=== PATIENT | female | born 1965 | race Caucasian/White ===

== ENCOUNTER 2016-05-09 23:03 | Inpatient (IN) | payer BC ==
--- NOTE | 2016-05-09 23:21 | ED PDOC ---
Arrival/HPI - General Chief Complaint: Seizure Time Seen by Provider: 05/09/16 23:07 Historian: Patient, Family - History of Present Illness Narrative History of Present Illness (Text): 05/09/16 23:20 Simran Patel is a 50 year old female, whose past medical history includes DVT, hypertension, lupus, and COPD, who presents to the ED brought in by EMS status post possible seizure prior to arrival. Patient's nephew reports he found the patient lying face down on the floor shaking and poorly responsive tonight. Patient is awake and alert but unable to recall the incident. Limited HPI and ROS due to patient's post-ictal state. Time/Duration: Prior to Arrival Symptom Onset: Sudden Activities at Onset: Rest, Light Context: Home Past Medical History - Provider Review Nursing Documentation Reviewed: Yes - Cardiac Hx Cardiac Disorders: Yes Hx Hypertension: Yes - Pulmonary Hx Respiratory Disorders: Yes Hx Chronic Obstructive Pulmonary Disease (COPD): Yes - Endocrine/Metabolic Hx Diabetes Mellitus Type 2: Yes Hx Systemic Lupus Erythematosus: Yes - Psychiatric Hx Psychophysiologic Disorder: No Hx Substance Use: No - Surgical History Hx Tonsillectomy: Yes - Anesthesia Hx Anesthesia: No Hx Anesthesia Reactions: No Hx Malignant Hyperthermia: No Family/Social History - Physician Review Nursing Documentation Reviewed: Yes Family/Social History: No Known Family HX Smoking Status: Never Smoked Hx Alcohol Use: No Hx Substance Use: No Allergies/Home Meds Allergies/Adverse Reactions: Allergies No Known Allergies Allergy (Verified 03/02/15 15:48) Home Medications: Home Meds Medication Instructions Recorded Confirmed Ergocalciferol (Vitamin D2) 50,000 iu PO QWK 03/02/15 05/10/16 [Vitamin D] Furosemide [Lasix] 20 mg PO DAILY 03/02/15 05/10/16 Valsartan/Hydrochlorothiazide 2 tab PO DAILY 03/02/15 05/10/16 [Valsartan-Hydrochlorothiazide 12.5 mg-160 mg] Aspirin [Aspirin Chewable] 81 mg PO DAILY 05/10/16 05/10/16 Famotidine [Pepcid] 40 mg PO DAILY 05/10/16 05/10/16 Glimepiride 2 mg PO BID 05/10/16 05/10/16 MetFORMIN [glucOPHAGE] 1,000 mg PO BID 05/10/16 05/10/16 azaTHIOprine [Azathioprine] 50 mg PO DAILY 05/10/16 05/10/16 Review of Systems - Review of Systems Systems not reviewed;Unavailable: Altered Mental Status (Post-ictal) Neurological: Seizure Physical Exam Vital Signs Reviewed: Yes Vital Signs Temp Pulse Resp BP Pulse Ox 05/10/16 03:08 98.9 F 109 H 17 114/61 95 05/10/16 02:38 106 H 17 114/61 95 05/10/16 01:24 118 H 17 127/48 L 95 05/10/16 01:00 116 H 17 120/79 94 L 05/10/16 00:49 101.1 F H 114 H 18 128/69 95 05/09/16 23:59 101.7 F H 123 H 16 134/84 96 05/09/16 23:39 126 H 17 122/78 95 05/09/16 23:09 103.1 F H 90 20 139/95 H 95 Temperature: Febrile Blood Pressure: Normal Pulse: Regular Respiratory Rate: Normal Appearance: Positive for: Well-Appearing, Non-Toxic, Comfortable Pain Distress: None Mental Status: Positive for: Alert and Oriented X 3 - Systems Exam Head: Present: Atraumatic, Normocephalic Pupils: Present: Other (Right pupil round and reactive to light, Left eye opacity) Extroacular Muscles: Present: EOMI Conjunctiva: Present: Normal Ears: Present: Normal, NORMAL TM, Normal Canal. No: Erythema Mouth: Present: Moist Mucous Membranes, Normal Teeth (No loose dentition), Other (No active bleeding) Pharnyx: Present: Normal. No: ERYTHEMA, EXUDATE, TONSILS ENLARGED, Uvular Deviation, Muffled/Hoarse Voice, Strider Neck: Present: Normal Range of Motion. No: Meningeal Signs, MIDLINE TENDERNESS , Paraspinal Tenderness, Other (No nuchal rigidity) Respiratory/Chest: Present: Clear to Auscultation, Good Air Exchange. No: Respiratory Distress, Accessory Muscle Use Cardiovascular: Present: Regular Rate and Rhythm, Normal S1, S2. No: Murmurs Abdomen: Present: Normal Bowel Sounds. No: Tenderness, Distention, Peritoneal Signs Back: Present: Normal Inspection Upper Extremity: Present: Normal Inspection. No: Cyanosis, Edema Lower Extremity: Present: Normal Inspection. No: Edema Neurological: Present: GCS=15, CN II-XII Intact, Speech Normal, Motor Func Grossly Intact, Normal Sensory Function, Normal Cerebellar Funct Skin: Present: Warm, Dry, Normal Color. No: Rashes Psychiatric: Present: Alert, Oriented x 3, Normal Insight, Normal Concentration Medical Decision Making ED Course and Treatment: 05/09/16 23:21 Impression: 50 year old female brought in by EMS s/p possible seizure. Differential Diagnosis include but are not limited to: seizure vs. sepsis Plan: -- CT Head w/o contrast -- EKG -- Chest X-ray -- Labs, troponin, VBG, blood cultures, alcohol level -- Urinalysis, urine cultures -- IV fluids -- Azactam -- Vanco -- Reassess and disposition Prior Visits: Notes and results from previous visits were reviewed. Progress Notes: Reviewed EKG, sinus tachycardia at 125 bpm. Non-specific ST/T wave changes. 05/09/16 23:42 Called Code Sepsis. 05/10/16 00:[address] Head, shows: Normal head/brain CT. 05/10/16 01:[address] Pereira, electroencephalographic technician, who is aware and agrees to evaluate pt for ICU admission. 05/10/16 01:37 There is no meningeal signs or nuchal rigidity. No concern for meningitis. Pt is on Xarelto, there is no concern for bleeding. Spoke with Dr. Pereira, present in ED to evaluate pt, states pt is not an ICU candidate. 05/10/16 02:[address] Tong. 05/10/[address] Tong. 05/10/16 02:30 Reviewed radiology, Chest X-ray shows no active disease. Awaiting call back from Dr. Tong. 05/10/16 02:51 Multiple calls placed to Dr. Tong, no call back. Will place on hospitalist service. Case discussed with medical appointment scheduler, who is aware and agrees with plan. Spoke with Dr. Pereira, who is aware and agrees with plan. Accepts pt in to hospitalist service. 05/10/16 04:[address] Lesvia Andrew, who is aware and agrees with plan. States to hold anti-seizure medication. - Critical Care Critical Care Minutes: 30 minutes Narrative Critical Care (Text): Management of sepsis - Lab Interpretations Microbiology Results: Microbiology Results 05/09/16 23:35 Blood-Venous Blood Culture - Preliminary NO GROWTH AFTER 4 DAYS 05/09/16 23:20 Blood-Venous Blood Culture - Preliminary NO GROWTH AFTER 4 DAYS 05/10/16 00:20 Urine,Clean Catch Urine Culture - Final No Growth (<1,000 CFU/ML) Lab Results: 05/09/16 23:20 05/09/16 23:20 Lab Results 05/10/16 02:55: pO2 111 H, VBG pH 7.39, VBG pCO2 37.0 L, VBG HCO3 22.4, VBG Total CO2 23.5, VBG O2 Sat (Calc) 98.7 H, VBG Base Excess -2.2 L, VBG Potassium 4.0, Sodium 139.0, Chloride 113.0 H, Glucose 160 H, Lactate 2.0, FiO2 21.0, Venous Blood Potassium 4.0 05/10/16 01:55: Urine Opiates Screen Negative, Urine Methadone Screen Negative, Ur Barbiturates Screen Negative, Ur Phencyclidine Scrn Negative, Ur Amphetamines Screen Negative, U Benzodiazepines Scrn Negative, U Oth Cocaine Metabols Negative, U Cannabinoids Screen Negative 05/10/16 00:20: Urine Color Yellow, Urine Appearance Clear, Urine pH 6.0, Ur Specific Mer[place]old 1.020, Urine Protein Trace H, Urine Glucose (UA) Negative, Urine Ketones Negative, Urine Blood Negative, Urine Nitrate Negative, Urine Bilirubin Negative, Urine Urobilinogen 0.2, Ur Leukocyte Esterase Negative, Urine RBC 0 - 2, Urine WBC 0 - 2, Ur Epithelial Cells 0 - 2 05/09/16 23:20: WBC 8.4 D, RBC 4.54, Hgb 12.2, Hct 37.6, MCV 82.8, MCH 26.9, MCHC 32.4, RDW 16.3 H, Plt Count 212, MPV 9.9, Gran % 73.7 H, Lymph % (Auto) 20.4 L, [place] % (Auto) 5.1, Eos % (Auto) 0.4 L, Baso % (Auto) 0.4, Gran # 6.22, Lymph # 1.7, [place] # 0.4, Eos # 0.0, Baso # 0.03, PT 10.8, INR 1.00, APTT 28.0, pO2 42, VBG pH 7.30 L, VBG pCO2 40.0, VBG HCO3 19.7 L, VBG Total CO2 20.9 L, VBG O2 Sat (Calc) 72.4 H, VBG Base Excess -6.3 L, VBG Potassium 4.5, Sodium 136.0, Chloride 105.0, Glucose 141 H, Lactate 6.8 H*, FiO2 21.0, Potassium 4.5, Carbon Dioxide 23, Anion Gap 20, BUN 25 H, Creatinine 1.0, Est GFR ( Amer ) > 60, Est GFR (Non-Af Amer) 58, Random Glucose 143 H, Calcium 9.2, Phosphorus 3.2, Magnesium 1.7, Total Bilirubin 0.6, AST 41 H, ALT 40, Alkaline Phosphatase 71, Troponin I < 0.01, Total Protein 9.1 H, Albumin 4.2, Globulin 4.9, Albumin/ Globulin Ratio 0.9 L, Venous Blood Potassium 4.5, Alcohol, Quantitative < 10 I have reviewed the lab results: Yes - RAD Interpretation Narrative RAD Interpretations (Text): CT Head, shows: Brain: Unremarkable. No hemorrhage. No significant white matter disease. No edema. Ventricles: Unremarkable. No ventriculomegaly. Bones/joints: Unremarkable. No acute fracture. Soft tissues: Unremarkable. Sinuses: Unremarkable as visualized. No acute sinusitis. Mastoid air cells: Unremarkable as visualized. No mastoid effusion. IMPRESSION: Normal head/brain CT. Radiology Orders: 05/09/16 23:26 HEAD W/O CONTRAST [CT] Stat 05/09/16 23:45 CHEST PORTABLE [RAD] Stat Pressure Steamer Tender: ED Physician, Radiologist - EKG Interpretation Interpreted by ED Physician: Yes Type: 12 lead EKG - Medication Orders Current Medication Orders: Acetaminophen (Tylenol 325mg Tab) 650 mg PO Q6H PRN PRN Reason: Fever >100.4 F Last Admin: 05/12/16 16:07 Dose: 650 MG MELISSA Pain/Vitals Document 05/12/16 16:07 MICEM (Rec: 05/12/16 16:[address] [id number]) Vitals Temperature (97.6 F-99.6 F) 100.2 F Temperature Source Oral Re-Assess: MELISSA Pain/Vitals Document 05/12/16 17:07 MICEM (Rec: 05/12/16 17:[address] [facility] [id number]) Vitals Temperature (97.6 F-99.6 F) 99.8 F Acetaminophen (Tylenol 325mg Tab) 650 mg PO Q6H PRN PRN Reason: Pain, moderate (4-7) Last Admin: 05/13/16 22:32 Dose: 650 MG MAR Pain/Vitals Document 05/13/16 22:32 BR (Rec: 05/13/16 22:[address] [id number] Pain Reassessment Is This A Pain ReAssessment? No Sleep Is patient sleeping during reassessment? No Presence of Pain Presence of Pain Yes Location Pain Location Body [place] Spreader Amoxicillin/Clavulanate Potassium (Augmentin 875 Mg-125 Mg Tab) 1 tab PO Q12 [facility] PRN Reason: Protocol Last Admin: 05/13/16 22:33 Dose: 1 TAB Aspirin (Aspirin Chewable) 81 mg PO DAILY [facility] Last Admin: 05/13/16 10:07 Dose: 81 MG Azathioprine (Imuran) 50 mg PO DAILY [facility] Last Admin: 05/13/16 10:07 Dose: 50 MG Benzocaine/Menthol (Cepacol Sore Throat) 1 manfred MT Q2H PRN PRN Reason: Sore Throat Last Admin: 05/13/16 13:21 Dose: 1 MANFRED Ergocalciferol (Drisdol 50,000 Intl Units Cap) 1 cap PO QWK [facility] Last Admin: 05/10/16 09:19 Dose: Heparin Sodium (Porcine) (Heparin) 5,000 units SC Q12 JAE PRN Reason: Protocol Last Admin: 05/13/16 22:31 Dose: 5,000 UNITS Subcutaneous Administrations Document 05/13/16 22:31 BR (Rec: 05/13/16 22:[address] [id number]) Charges for Administration # of Subcutaneous Administrations 1 Acyclovir 750 mg/ Sodium (Chloride) 100 mls @ 100 mls/hr IV Q8 JAE PRN Reason: Protocol Stop: 05/19/16 14:01 Last Admin: 05/14/16 05:02 Dose: 100 MLS/HR eMAR Start Stop Document 05/14/16 05:02 BR (Rec: 05/14/16 05:[address] [id number]) Intravenous Solution Start Date 05/14/16 Start Time 05:02 End Date 05/14/16 End time 06:02 Total Infusion Time 60 Insulin Human Lispro (Humalog Med) 0 units SC ACHS JAE PRN Reason: Protocol Last Admin: 05/13/16 17:22 Dose: 1 UNITS Subcutaneous Administrations Document 05/13/16 17:22 ANTOALL (Rec: 05/13/16 17:22 ANTOALL [id number]) Charges for Administration # of Subcutaneous Administrations 1 Lisinopril (Zestril) 30 mg PO DAILY [facility] Loratadine (Claritin) 10 mg PO DAILY [facility] Last Admin: 05/13/16 10:07 Dose: 10 MG Lorazepam (Ativan) 2 mg IVP Q4H PRN; Protocol PRN Reason: Seizure activity Ondansetron HCl (Zofran Inj) 4 mg IVP Q6H PRN PRN Reason: Nausea/Vomiting Pantoprazole Sodium (Protonix Ec Tab) 40 mg PO ACB [facility] Last Admin: 05/13/16 10:07 Dose: 40 MG Discontinued Medications Acetaminophen (Tylenol 325mg Tab) 650 mg PO STAT STA Stop: 05/09/16 23:38 Last Admin: 05/09/16 23:43 Dose: 650 MG MAR Pain/Vitals Document 05/09/16 23:43 LAC (Rec: 05/09/16 23:43 LAC [id number] Pain Reassessment Is This A Pain ReAssessment? No Acetaminophen (Tylenol 325mg Tab) Confirm Administered Dose 650 mg .ROUTE .STK- MED ONE Stop: 05/09/16 23:43 Last Admin: 05/09/16 23:44 Dose: Benzonatate (Tessalon Perles) 100 mg PO TID [facility] Last Admin: 05/11/16 09:29 Dose: 100 MG Aztreonam (Azactam 2 Gm) 100 mls @ 100 mls/hr IVPB STAT STA PRN Reason: Protocol Stop: 05/10/16 00:41 Last Admin: 05/10/16 00:24 Dose: 100 MLS/HR eMAR Start Stop Document 05/10/16 00:24 RD (Rec: 05/10/16 00:24 RD [id number]) Intravenous Solution Start Date 05/10/16 Start Time 00:24 End Date 05/10/16 End time 01:24 Total Infusion Time 60 Sodium Chloride 1,800 ml/ IV (SUPPLIES) 1,800 mls @ 3,538.02 mls/hr IV ONCE ONE PRN Reason: 60 ML/KG/HR Stop: 05/09/16 23:43 Last Admin: 05/10/16 00:24 Dose: 3,538.02 MLS/HR eMAR Start Stop Document 05/10/16 00:24 RD (Rec: 05/10/16 00:25 RD [id number]) Intravenous Solution Start Date 05/09/16 Start Time 23:42 Vancomycin HCl (Vancomycin 1gm) 250 mls @ 167 mls/hr IVPB STAT STA PRN Reason: Protocol Stop: 05/10/16 01:11 Last Admin: 05/10/16 01:20 Dose: 167 MLS/HR eMAR Start Stop Document 05/10/16 01:20 RD (Rec: 05/10/16 01:41 RD [id number]) Intravenous Solution Start Date 05/10/16 Start Time 01:20 End Date 05/10/16 End time 02:50 Total Infusion Time 90 Sodium Chloride (Sodium Chloride 0.9%) 1,000 mls @ 125 mls/hr IV .Q8H [facility] Last Admin: 05/11/16 05:09 Dose: 125 MLS/HR eMAR Start Stop Document 05/11/16 05:09 IMT (Rec: 05/11/16 05:09 IMT [id number]) Intravenous Solution Start Date 05/11/16 Start Time 03:00 Piperacillin Sod/Tazobactam Sod (Zosyn 3.375 In Ns 100ml) 100 mls @ 200 mls/hr IVPB Q6 JAE PRN Reason: Protocol Stop: 05/10/16 12:29 Last Admin: 05/10/16 06:36 Dose: 200 MLS/HR eMAR Start Stop Document 05/10/16 06:36 TTC (Rec: 05/10/16 06:36 TTC [id number]) Intravenous Solution Start Date 05/10/16 Start Time 06:36 End Date 05/10/16 End time 07:06 Total Infusion Time 30 Vancomycin HCl (Vancomycin 1gm) 250 mls @ 167 mls/hr IVPB Q12H JAE PRN Reason: Protocol Last Admin: 05/10/16 04:59 Dose: 167 MLS/HR eMAR Start Stop Document 05/10/16 04:59 TTC (Rec: 05/10/16 05:00 TTC [id number]) Intravenous Solution Start Date 05/10/16 Start Time 04:59 End Date 05/10/16 End time 06:29 Total Infusion Time 90 Ceftriaxone Sodium (Rocephin 2 Gm Ivpb) 100 mls @ 100 mls/hr IVPB DAILY JAE PRN Reason: Protocol Stop: 05/19/16 11:06 Last Admin: 05/12/16 09:33 Dose: 100 MLS/HR eMAR Start Stop Document 05/12/16 09:33 KKA (Rec: 05/12/16 09:34 KKA [id number]) Intravenous Solution Start Date 05/12/16 Start Time 09:34 End Date 05/12/16 End time 10:35 Total Infusion Time 61 Vancomycin HCl (Vancomycin 1gm) 250 mls @ 167 mls/hr IVPB Q12H JAE PRN Reason: Protocol Stop: 05/19/16 11:01 Last Admin: 05/12/16 12:11 Dose: 167 MLS/HR eMAR Start Stop Document 05/12/16 12:11 KKA (Rec: 05/12/16 12:11 KKA [id number]) Intravenous Solution Start Date 05/12/16 Start Time 12:11 End Date 05/12/16 End time 13:40 Total Infusion Time 89 Sodium Chloride (Sodium Chloride 0.9%) 1,000 mls @ 75 mls/hr IV .[id number] [facility] Last Admin: 05/13/16 06:06 Dose: 75 MLS/HR eMAR Start Stop Document 05/13/16 06:06 [email or web address] (Rec: 05/13/16 06:06 [email or web address] [email or web address]) Intravenous Solution Start Date 05/13/16 Start Time 06:06 End Date 05/13/16 Insulin Human Lispro (Humalog Low) 0 units SC ACHS JAE PRN Reason: Protocol Last Admin: 05/11/16 09:16 Dose: Not Given Non-Admin Reason: Blood Sugar Parameter Insulin Human Lispro (Humalog Med) 0 units SC ACHS JAE PRN Reason: Protocol Lidocaine HCl (Lidocaine 1% (20ml)) Confirm Administered Dose 20 ml .ROUTE .STK- MED ONE Stop: 05/10/16 12:04 Last Admin: 05/10/16 12:40 Dose: 20 ML Lidocaine HCl (Lidocaine 1% (20ml)) 5 ml IJ ONCE STA Stop: 05/10/16 12:24 Last Admin: 05/10/16 12:44 Dose: Pantoprazole Sodium (Protonix Inj) 40 mg IVP DAILY [facility] Last Admin: 05/10/16 09:13 Dose: 40 MG IVP Administration Document 05/10/16 09:13 CHART COLLECTOR (Rec: 05/10/16 09:[address] [facility]-[id number]) Charges for Administration # of IVP Administrations 1 Rivaroxaban (Xarelto) 20 mg PO DAILY JAE PRN Reason: Protocol Last Admin: 05/10/16 09:13 Dose: 20 MG - Glendaibe Statement The provider has reviewed the documentation as recorded by the Cary Carey Provider Attestation: All medical record entries made by the Cary were at my direction and personally dictated by me. I have reviewed the chart and agree that the record accurately reflects my personal performance of the history, physical exam, medical decision making, and the department course for this patient. I have also personally directed, reviewed, and agree with the discharge instructions and disposition. Disposition/Present on Arrival - Present on Arrival Any Indicators Present on Arrival: No History of DVT/PE: No History of Uncontrolled Diabetes: No Urinary Catheter: No History of Decub. Ulcer: No History Surgical Site Infection Following: None - Disposition Have Diagnosis and Disposition been Completed?: Yes Diagnosis: Seizure, Sepsis Disposition: Transfer [facility] Disposition Time: 02:50 Condition: SERIOUS
[2016-05-09 23:32] LABS: ADD MANUAL DIFF? NO
[2016-05-09 23:35] LABS: BASO # 0.03 K/mm3 (0.0-2.0); BASO % 0.4 % (0.0-3.0); EOS % 0.4 % (1.5-5.0); GRAN # 6.22 (1.4-6.5); GRAN % 73.7 % (50.0-68.0); HEMATOCRIT 37.6 % (36.0-48.0); LYMPH # 1.7 (1.2-3.4); LYMPH % 20.4 % (22.0-35.0); MEAN CELL VOLUME 82.8 fL (80.0-105.0); MEAN CORPUSCULAR HEMOGLOBIN 26.9 pg (25.0-35.0); MEAN CORPUSCULAR HGB CONC 32.4 g/dl (31.0-37.0); MEAN PLATELET VOLUME 9.9 fl (7.0-11.0); MONO # 0.4 (0.1-0.6); MONO % 5.1 % (1.0-6.0); PLATELET COUNT 212 10^3/uL (120.0-450.0); RED CELL DISTRIBUTION WIDTH 16.3 % (11.5-14.5); VENOUS BLOOD GAS BASE EXCESS -6.3 mmol/L (0.0-2.0); WHITE BLOOD COUNT 8.4 10^3/ul (4.5-11.0)
[2016-05-09] MEDS ORDERED: Vancomycin 1gm in NS 250ml 250 ML IVPB STA (23:42)
[2016-05-09] MEDS ORDERED: Aztreonam 2 Gm in NS 100mL 100 ML IVPB STA (23:42)
[2016-05-09 23:46] LABS: ALB/GLOB RATIO 0.9 (1.1-1.8); ALKALINE PHOSPHATASE 71 U/L (38-133); ALT/SGPT 40 U/L (7-56); AST/SGOT 41 U/L (15-39); BILIRUBIN,TOTAL 0.6 mg/dL (0.2-1.3); BLOOD UREA NITROGEN 25 mg/dL (7-21); CALCIUM 9.2 mg/dL (8.4-10.5); CARBON DIOXIDE 23 mmol/L (21-33); CHLORIDE 99 mmol/L (98-107); GFR AFRICAN-AMERICAN > 60; GLUCOSE,RANDOM 143 mg/dL (70-110); POTASSIUM 4.5 mmol/L (3.6-5.0); SODIUM 137 mmol/L (132-148); TOTAL PROTEIN 9.1 g/dL (5.8-8.3)
[2016-05-10] LABS: TROPONIN I < 0.01 ng/mL
[2016-05-10 00:22] LABS: MAGNESIUM 1.7 mg/dL (1.7-2.2); PHOSPHOROUS 3.2 mg/dL (2.5-4.5)
[2016-05-10 00:59] LABS: URINE BILIRUBIN NEGATIVE (NEGATIVE); URINE BLOOD NEGATIVE (NEGATIVE); URINE GLUCOSE (UA) NEGATIVE (NEGATIVE); URINE KETONE NEGATIVE (NEGATIVE); URINE LEUKOCYTE ESTERASE NEGATIVE Leu/uL (NEGATIVE); URINE PROTEIN TRACE mg/dL (<30 mg/dL); URINE UROBILINOGEN 0.2 E.U./dL (<1 E.U./dL)
[2016-05-10 01:00] LABS: URINE APPEARANCE CLEAR (CLEAR); URINE COLOR YELLOW (YELLOW)
[2016-05-10 01:01] LABS: URINE EPITHELIAL CELLS 0 - 2 /hpf (0-5); URINE RBC 0 - 2 /hpf (0-2); URINE WBC 0 - 2 /hpf (0-6)
[2016-05-10 03:03] LABS: VENOUS BLOOD GAS BASE EXCESS -2.2 mmol/L (0.0-2.0); VENOUS BLOOD PH 7.39 (7.32-7.43)
[2016-05-10] MEDS: Sodium Chloride 0.9% 1,000 ML IV SCH ×3 (03:16→23:10)
[2016-05-10] MEDS: Vancomycin 1gm in NS 250ml 250 ML IVPB SCH ×4 (03:19→23:04)
[2016-05-10 04:56] LABS: ADD MANUAL DIFF? NO
[2016-05-10 04:57] LABS: BASO # 0.02 K/mm3 (0.0-2.0); BASO % 0.2 % (0.0-3.0); EOS % 0.1 % (1.5-5.0); GRAN # 6.96 (1.4-6.5); GRAN % 80.9 % (50.0-68.0); HEMATOCRIT 32.7 % (36.0-48.0); LYMPH # 1.2 (1.2-3.4); LYMPH % 14.2 % (22.0-35.0); MEAN CELL VOLUME 82.2 fL (80.0-105.0); MEAN CORPUSCULAR HEMOGLOBIN 26.6 pg (25.0-35.0); MEAN CORPUSCULAR HGB CONC 32.4 g/dl (31.0-37.0); MEAN PLATELET VOLUME 9.3 fl (7.0-11.0); MONO # 0.4 (0.1-0.6); MONO % 4.6 % (1.0-6.0); PLATELET COUNT 173 10^3/uL (120.0-450.0); RED CELL DISTRIBUTION WIDTH 16.4 % (11.5-14.5); WHITE BLOOD COUNT 8.6 10^3/ul (4.5-11.0)
--- NOTE | 2016-05-10 05:10 | CP.PCM.HP ---
<Angy Agosto - Last Filed: 05/10/16 06:14> History of Present Illness - History of Present Illness History of Present Illness: PGY-[address] Pereira 50 year old female, whose past medical history includes DVT, hypertension, lupus , and COPD, who presents to the ED brought in by EMS status post possible seizure prior to arrival. Patient's nephew reports he found the patient lying face down on the floor shaking and poorly responsive tonight. Patient is awake and alert but unable to recall the incident. Pt states that she has not been feeling well for the 3 days. She has been coughing, producing yellowish sputum, chills. She has running out of Imuran for 2 weeks, and felt increasing diffuse joint pain this week which is similar to her prior lupus flair. PMH COPD DM 2 x 3-4 years Systemic Lupus Erythematousus DVT last year, off anticoagulant per Dr. 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 1 glass of wine @ month. never used drugs All NKDA PMD = Dr. Harris Associate Embalmer/Funeral Director = Dr. Gurrola Present on Admission - Present on Admission Any Indicators Present on Admission: No Past Patient History - Past Social History Smoking Status: Never Smoked - CARDIAC Hx Cardiac Disorders: Yes Hx Hypertension: Yes - PULMONARY Hx Respiratory Disorders: Yes Hx Chronic Obstructive Pulmonary Disease (COPD): Yes - ENDOCRINE/METABOLIC Hx Diabetes Mellitus Type 2: Yes Hx Systemic Lupus Erythematosus: Yes - PSYCHIATRIC Hx Psychophysiologic Disorder: No Hx Substance Use: No - SURGICAL HISTORY Hx Tonsillectomy: Yes - ANESTHESIA Hx Anesthesia: No Hx Anesthesia Reactions: No Hx Malignant Hyperthermia: No Meds Allergies/Adverse Reactions: Allergies Allergy/AdvReac Type Severity Reaction Status Date / Time No Known Allergies Allergy Verified 03/02/15 15:48 Physical Exam - Constitutional Appears: No Acute Distress - Head Exam Head Exam: ATRAUMATIC, NORMOCEPHALIC - Eye Exam Eye Exam: EOMI, Normal appearance Additional comments: L eye corneal clouding, blurry vision - ENT Exam ENT Exam: Mucous Membranes Moist - Neck Exam Additional comments: supple, no jvd - Respiratory Exam Respiratory Exam: Clear to Auscultation Bilateral, NORMAL BREATHING PATTERN. absent: Rales, Rhonchi, Wheezes - Cardiovascular Exam Cardiovascular Exam: REGULAR RHYTHM, +S1, +S2. absent: Systolic Murmur - GI/Abdominal Exam GI & Abdominal Exam: Normal Bowel Sounds, Soft. absent: Distended, Guarding, Rigid, Tenderness - Extremities Exam Extremities exam: Positive for: normal capillary refill, pedal pulses present. Negative for: calf tenderness, pedal edema - Back Exam Back exam: absent: CVA tenderness (L), CVA tenderness (R), paraspinal tenderness , vertebral tenderness Additional comments: diffuse joint pain, mild - Neurological Exam Neurological exam: Alert, CN II-XII Intact, Oriented x3 Additional comments: sensory and motor grossly intact. Mild decrease sensation in distal foot b/l - Psychiatric Exam Psychiatric exam: Normal Affect, Normal Mood - Skin Skin Exam: Dry, Warm Additional comments: no rash Results - Vital Signs Recent Vital Signs: Last Vital Signs Temp 98.9 F 05/10/16 03:08 Pulse 109 H 05/10/16 03:08 Resp 17 05/10/16 03:08 BP 114/61 05/10/16 03:08 Pulse Ox 95 05/10/16 03:08 - Labs Result Diagrams: 05/10/16 04:45 05/10/16 04:45 Labs: Laboratory Results - last 24 hr 05/10/16 04:45 WBC 8.6 RBC 3.98 Hgb 10.6 L Hct 32.7 L MCV 82.2 MCH 26.6 MCHC 32.4 RDW 16.4 H Plt Count 173 MPV 9.3 Gran % 80.9 H Lymph % (Auto) 14.2 L Graham % (Auto) 4.6 Eos % (Auto) 0.1 L Baso % (Auto) 0.2 Gran # 6.96 H Lymph # 1.2 Graham # 0.4 Eos # 0.0 Baso # 0.02 Assessment & Plan - Assessment and Plan (Free Text) Plan: 50 year old female, with past medical history includes DVT, hypertension, lupus , and COPD, admitted for seizure Seizure, provoked vs unprovoked - 1st epidsode in life - prior illness - skip lupus med - TSH - neuro consult - CT head - normal SIRS x 1 for sinus tachycardia at 116; Lactate 6.8 --> 2 - r/o infection blood, urine, sputum culture, procalc pending - r/o lupus flair c3, c4 - ID consult - vanco & zosyn Bronchitis - CXR - tessalon pearles PRN R/O rhabomyolysis - CPK - NS @ 125 Hx DVT - ASA - start xarelto Non-IDDM - ISSS htn - lisinopril - on hold Low risk of GI stress ulcer S/R/D/w Dr. Pereira - Date & Time Date: 05/10/16 Time: 06:02 <Chris Pereira MD - Last Filed: 05/11/16 07:16> Results - Vital Signs Recent Vital Signs: Last Vital Signs Temp 99.9 F H 05/11/16 06:18 Pulse 110 H 05/11/16 06:00 Resp 20 05/11/16 06:00 BP 147/81 05/11/16 06:00 Pulse Ox 97 05/11/16 06:00 - Labs Result Diagrams: 05/10/16 04:45 05/11/16 06:30 Labs: Laboratory Results - last 24 hr 05/10/16 05/10/16 05/10/16 04:45 12:00 12:17 Sodium Potassium Chloride Carbon Dioxide Anion Gap BUN Creatinine Est GFR ( Amer) Est GFR (Non-Af Amer) Random Glucose Calcium Phosphorus Magnesium Total Bilirubin AST ALT Alkaline Phosphatase Total Creatine Kinase CK-MB (CK-2) CK-MB (CK-2) % Total Protein Albumin Globulin Albumin/Globulin Ratio Procalcitonin 0.13 L Fluid Type Spinal fluid CSF Volume 1 CSF Appearance Clear/colorless CSF WBC 2.2 CSF RBC 1598.9 H CSF Total Cell Counted TEST NOT PERFORMED CSF Monos/Macrophages TEST NOT PERFORMED CSF Comment TEST NOT PERFORMED CSF Glucose CSF Total Protein 63.0 H CSF Cryptococcus Ag Negative Complement C3 Complement C4 05/10/16 05/10/16 05/10/16 13:00 14:00 22:10 Sodium Potassium Chloride Carbon Dioxide Anion Gap BUN Creatinine Est GFR ( Amer) Est GFR (Non-Af Amer) Random Glucose Calcium Phosphorus Magnesium Total Bilirubin AST ALT Alkaline Phosphatase Total Creatine Kinase 848 H 1553 H CK-MB (CK-2) 0.5 0.4 CK-MB (CK-2) % Cancelled Cancelled Total Protein Albumin Globulin Albumin/Globulin Ratio Procalcitonin Fluid Type CSF Volume CSF Appearance CSF WBC CSF RBC CSF Total Cell Counted CSF Monos/Macrophages CSF Comment CSF Glucose 73 H CSF Total Protein CSF Cryptococcus Ag Complement C3 110.0 Complement C4 25.6 05/11/16 06:30 Sodium 137 Potassium 3.9 Chloride 105 Carbon Dioxide 22 Anion Gap 14 BUN 10 Creatinine 0.8 Est GFR ( Amer) > 60 Est GFR (Non-Af Amer) > 60 Random Glucose 155 H Calcium 8.1 L Phosphorus 2.8 Magnesium 1.7 Total Bilirubin 0.9 AST 51 H ALT 33 Alkaline Phosphatase 56 Total Creatine Kinase CK-MB (CK-2) CK-MB (CK-2) % Total Protein 7.7 Albumin 3.3 Globulin 4.4 Albumin/Globulin Ratio 0.8 L Procalcitonin Fluid Type CSF Volume CSF Appearance CSF WBC CSF RBC CSF Total Cell Counted CSF Monos/Macrophages CSF Comment CSF Glucose CSF Total Protein CSF Cryptococcus Ag Complement C3 Complement C4 Attending/Attestation - Attestation I have personally seen and examined this patient.: Yes I have fully participated in the care of the patient.: Yes I have reviewed all pertinent clinical information: Yes Notes (Text): 05/11/16 07:13 -I agree with the above H&P completed by the resident physician with the following additions and/or changes: -The patient is a 50 year old woman with a history of Lupus, HTN, DVT and COPD who presents with sudden new onset seizure and fever. She has no post-ictal confusion. We will start empiric IV Vanco and Zosyn. We will consult ID and neuro as well. If patient continues to spike temp's then will consider LP for rule out meningitis.
[2016-05-10 05:24] LABS: ALB/GLOB RATIO 0.8 (1.1-1.8); ALKALINE PHOSPHATASE 54 U/L (38-133); ALT/SGPT 33 U/L (7-56); AST/SGOT 32 U/L (15-39); BILIRUBIN,TOTAL 0.5 mg/dL (0.2-1.3); BLOOD UREA NITROGEN 20 mg/dL (7-21); CALCIUM 8.1 mg/dL (8.4-10.5); CARBON DIOXIDE 22 mmol/L (21-33); CHLORIDE 108 mmol/L (98-107); GFR AFRICAN-AMERICAN > 60; GLUCOSE,RANDOM 146 mg/dL (70-110); MAGNESIUM 1.8 mg/dL (1.7-2.2); PHOSPHOROUS 3.1 mg/dL (2.5-4.5); POTASSIUM 3.9 mmol/L (3.6-5.0); SODIUM 140 mmol/L (132-148); TOTAL PROTEIN 7.4 g/dL (5.8-8.3)
[2016-05-10 05:27] VITALS: BMI 253572.5
[2016-05-10] MEDS ORDERED: Piperacillin/Tazobact 3.375 gm 100 ML IVPB SCH (06:00)
--- NOTE | 2016-05-10 08:36 | RAD ---
HISTORY: sepsis COMPARISON: CTA chest performed 03/02/15 TECHNIQUE: Chest, one view. FINDINGS: Examination limited by habitus and hypoinflation. External cardiac monitoring leads. LUNGS: Minimal subsegmental bibasilar atelectasis. Please note that chest x-ray has limited sensitivity for the detection of pulmonary masses. PLEURA: No significant pleural effusion identified. No definite pneumothorax . CARDIOVASCULAR: The cardiomediastinal silhouette appears within normal limits of size. OSSEOUS STRUCTURES: No acute osseous abnormality identified. VISUALIZED UPPER ABDOMEN: Unremarkable. OTHER FINDINGS: None. IMPRESSION: Minimal subsegmental bibasilar atelectasis.
[2016-05-10] MEDS: Insulin Lispro (humaLOG) LOW Coverage SC SCH ×4 (09:00→21:55)
--- NOTE | 2016-05-10 09:45 | CT ---
PROCEDURE: CT HEAD WITHOUT CONTRAST. HISTORY: seizure COMPARISON: None available. TECHNIQUE: Axial computed tomography images were obtained through the head/brain without intravenous contrast. Radiation dose: Total exam DLP = 629.06 mGy-cm. FINDINGS: HEMORRHAGE: No intracranial hemorrhage. BRAIN: No mass effect or edema. Intracranial vascular calcifications. The sella appears empty. The ford-white matter differentiation appears intact. Please note that MRI with diffusion imaging is more sensitive in the detection of acute ischemic event. VENTRICLES: No hydrocephalus. CALVARIUM: Unremarkable. PARANASAL SINUSES: Unremarkable as visualized. No significant inflammatory changes. MASTOID AIR CELLS: Unremarkable as visualized. No inflammatory changes. OTHER FINDINGS: None. IMPRESSION: No acute intracranial pathology identified. Additional findings as above. Preliminary impression was provided by virtual radiologic.
--- NOTE | 2016-05-10 09:59 | CARD ---
APPROVED REPORT EKG Measurement Heart [id number] <Conclusion> Sinus Tachycardia LAD NSSTW changes
[2016-05-10] MEDS ORDERED: Ergocalciferol 50,000 Intl Units Cap PO SCH (10:00)
--- NOTE | 2016-05-10 11:25 | CON ---
DATE: 05/10/2016 NEUROLOGY CONSULTATION REASON FOR CONSULTATION: Seizures. HISTORY OF PRESENTING ILLNESS: The patient is a 50-year-old female who has been asked for evaluation of seizures. The patient apparently was at home. Her nephew was at home with her. The patient madelyn t to the bathroom, and her nephew heard a thump sound. The patient went to see what was going on and tried to call his aunt, but she never responded - opened the door, and the patient was lying on the floor and apparently shaking. He called his mom and also called 911. The patient was confused after she woke up. The patient does not remember anything. She does rememb er going to the bathroom, and the next thing she knows is she woke up in the hospital. The patient h ad never had seizure before. She denied any urinary incontinence or tongue-biting. Denies any ta e in medications. REVIEW OF SYSTEMS: Denies any headache, dizziness, chest pain, shortness of breath, abdominal pain, constipation, diarrhea, dysuria, cough, or sputum production. PAST MEDICAL HISTORY: Includes COPD, diabetes mellitus, systemic lupus erythematosus, hypertension, left eye blurry vision from lupus, and DVT. PAST SURGICAL HISTORY: Includes left cornea transplant and tonsillectomy. SOCIAL HISTORY: Denies smoking, socially drinks alcohol. Denies use of any illicit drugs. MEDICATIONS AT HOME: Include azathioprine, Pepcid, aspirin, glyburide, metformin, vitamin D, Lasix, valsartan/hydrochlorothiazide. ALLERGIES: No known drug allergies. FAMILY HISTORY: Mother of asthma. Father had diabetes mellitus and hypertension. PHYSICAL EXAMINATION: GENERAL: The patient is a middle-aged female lying on the bed in no acute distress. VITAL SIGNS: Her blood pressure is 117/62. Heart rate is 90 per minute, breathing at a rate of 16 p er minute. Temperature is 98.8 degrees Fahrenheit. HEENT: Head is normocephalic, atraumatic. NECK: Supple. There are no carotid bruits. LUNGS: Clear. CARDIOVASCULAR: S1, S2 audible. No murmurs. ABDOMEN: Soft, nontender, bowel sounds present. NEUROLOGIC EXAMINATION: MENTAL STATUS: The patient is awake and alert, oriented to time, place, and person. Speech is fluen t. Naming and repetition normal. Memory and cognition are intact. CRANIAL NERVES: Pupil on the right is 4 mm reactive to light. The left cornea is opaque. She has d ecreased visual acuity in the left eye. Extraocular movements are intact. There is no facial asymme try. Palate is upgoing bilaterally, and tongue is midline. MOTOR: Tone is normal. Power is 5/5 bilaterally in all extremities. Reflexes 1+ and symmetrical. Plantars are downgoing bilaterally. SENSORY: Intact to soft touch and pinprick. GAIT: Deferred at the moment. LABORATORY DATA: Labs reviewed show WBC of 8.6, hemoglobin 10.6, hematocrit 32.7, and platelets of 1 73. Her sodium is 140, potassium 3.9, chloride 108, carbon dioxide content 22, BUN of 20, creatinine 0.8, and glucose of 146. She had a CT scan of the head done, which shows no acute intracranial pathology. IMPRESSION: New onset of seizure with history of systemic lupus erythematosus. RECOMMENDATIONS: 1. The patient to have MRI of the brain without contrast. 2. The patient also to have an electroencephalogram. 3. We will hold off antiepileptics at the moment. 4. The patient to have seizure precautions. 5. The patient is recommended not to drive. 6. Please continue supportive care and other treatment. Thank you for the opportunity to participate in the care of this patient. Davide Andrew MD cc: 142 TT: 05/10/2016 11:25:14 Confirmation # [id number] Dictation # [id number] ariella
[2016-05-10] MEDS ORDERED: Lidocaine 1% Inj (20ml) IJ STA (12:23)
[2016-05-10] MEDS: Lidocaine 1% Inj (20ml) ONE ×2 (12:38→12:40)
--- NOTE | 2016-05-10 12:42 | CON ---
DATE: 05/10/2016 The patient is seen in room 262, bed 1 this morning. CHIEF COMPLAINT: Fever x 1 day duration. HISTORY OF PRESENT ILLNESS: This is a 50-year-old female with past medical history significant for l upus, history of DVT, hypertension, chronic obstructive lung disease, was admitted possible post seiz ure. The patient was found lying facing down, shaking and poorly responsive, admitted through the Em ergency Room where the patient was found to have a temperature of 103. Infectious disease consultati on requested. The patient states that she is having headaches. No neck pain. No abdominal pain, di arrhea or constipation. No sore throat, no rash. No new joint pain, though she states that her join ts have been worse than usual. PAST MEDICAL HISTORY: Significant for chronic obstructive lung disease, hypertension, DVT, diabetes mellitus. The patient is also blind in the left eye. PAST SURGICAL HISTORY: Significant for tonsillectomy. FAMILY HISTORY: Significant for asthma on maternal side and hypertension. Diabetes and hypertension on her paternal side. Both of her parents are passed. ALLERGIES: She has no known allergies. MEDICATIONS AT HOME: Include azathioprine, Pepcid, aspirin, glimepiride, metformin, vitamin D2, Lasi x, valsartan, hydrochlorothiazide. PHYSICAL EXAMINATION: GENERAL: She is in bed. She is awake and alert, answering questions appropriately. Her niece is at the bedside. VITAL SIGNS: Temperature is 98, T-max was 103.1, heart rate of 116, respiratory rate of 17, it was 2 0 in the Emergency Room, blood pressure is 120/70. HEENT: Unremarkable except left eye finding. NECK: Supple. LUNGS: Have decreased breath sounds in the right base. HEART: Normal S1, S2. ABDOMEN: Soft, nontender. No rebound, no guarding. LABORATORY EXAMINATION: Reveals a white count of 8.4, hemoglobin of 12, platelets of 212. Coagulati on is noted. Chemistries reveal the BUN of 20, creatinine 0.8, total creatine kinase is 510. Procal citonin is 0.13. Urinalysis is unremarkable. The patient had a chest x-ray, which reveals minimal s ubsegmental bibasilar atelectasis. CAT scan of the head is negative. The Emergency Room chart is re viewed, written by Dr. Aldo Ayala. Surendra's note is also reviewed. ASSESSMENT AND PLAN: A 50-year-old female with diabetes mellitus, hypertension, lupus, deep venous th rombosis, chronic obstructive pulmonary disease, left eye blindness, admitted after a seizure with fe sonia of 103 and headaches, and tachycardia. 1. Systemic inflammatory response syndrome. The patient is admitted with systemic inflammatory resp onse syndrome with fevers of 103, tachycardia, headaches, history of lupus and seizures, concern abou t a primary central nervous system pathology, meningitis. Lupus patient's have a higher incidence of encapsulated organism infections. We will start the patient empirically on vancomycin, ceftriaxone, acyclovir. Will order complement levels to see if underlying lupus may be the cause of the central nervous system presentation and recommend a neurology evaluation, MRI and spinal tap. Will also cove r for acyclovir with possible herpes encephalitis, although patient certainly does not have encephali tis, she is awake and alert, pending initial workup for both lupus induced and possible gastric colin nt aspiration pneumonia after the seizure. We will make further recommendations. Case discussed wit h PMD in detail. Will follow closely with you. Jono Castillo MD cc: [id number] TT: 05/10/2016 12:41:24 Confirmation # [id number] Dictation # [id number] nyla
--- NOTE | 2016-05-10 12:57 | PROCN ---
DATE: 05/10/2016 PROCEDURE NAME: Lumbar puncture. PERFORMED BY: Davide Andrew MD ASSISTED BY: Nurse Karla Olea After taking informed consent and taking all aseptic precautions, 20 gauge spinal needle introduced i n L2-L3 interspace. About 9-10 mL of clear CSF was obtained. The opening pressure was normal. The patient tolerated the procedure very well. The CSF was sent to the laboratory for further analysis. Davide Andrew MD cc: 142 TT: 05/10/2016 12:55:53 Confirmation # [id number] Dictation # [id number] en
[2016-05-10 13:25] LABS: FLUID TYPE SPINAL FLUID
--- NOTE | 2016-05-10 18:45 | CP.PCM.CON ---
History of Present Illness - History of Present Illness History of Present Illness: Patient is a 50 year old female with history of Lupus on imuran. She had DVT last year, off anticoagulation now. She was found on floor with face down, shaking. Had fever 103 F. She also has DM II - controlled on current meds. No fever during hospitalization. No seizure episodes since admission. She also has anemia on CBC done in ER. WC is not elevated. Review of Systems - Constitutional Constitutional: Chills, Fatigue, Fever, Weakness - EENT Eyes: Change in Vision, Dry Eye Ears: absent: As Per HPI, Decreased Hearing, Ear Discharge, Ear Pain, Tinnitus, Abnormal Hearing, Disequilibrium, Dizziness, Other Nose/Mouth/Throat: absent: As Per HPI, Epistaxis, Nasal Congestion, Nasal Discharge, Nasal Obstruction, Nasal Trauma, Nose Pain, Post Nasal Drip, Sinus Pain, Sinus Pressure, Bleeding Gums, Change in Voice, Dental Pain, Dry Mouth, Dysphagia, Halitosis, Hoarsness, Lip Swelling, Mouth Lesions, Mouth Pain, Odynophagia, Sore Throat, Throat Swelling, Tongue Swelling, Facial Pain, Neck Pain, Neck Mass, Other - Breasts Breasts: absent: As Per HPI, Change in Shape, Mass, Pain, Nipple Discharge, Nipple Inversion, Skin Changes, Swelling, Other - Cardiovascular Cardiovascular: absent: As Per HPI, Acrocyanosis, Chest Pain, Chest Pain at Rest , Chest Pain with Activity, Claudication, Diaphoresis, Dyspnea, Dyspnea on Exertion, Edema, Irregular Heart Rhythm, Pain Radiating to Arm/Neck/Jaw, Leg Edema, Leg Ulcers, Lightheadedness, Orthopnea, Palpitations, Paroxysmal Nocturnal Dyspnea, Pedal Edema, Radiating Pain, Rapid Heart Rate, Slow Heart Rate, Syncope, Other - Respiratory Respiratory: absent: As Per HPI, Cough, Dyspnea, Hemoptysis, Dyspnea on Exertion , Wheezing, Snoring, Stridor, Pain on Inspiration, Chest Congestion, Excessive Mucous Production, Change in Mucous Color, Pain with Coughing, Other - Genitourinary Genitourinary: absent: As Per HPI, Change in Urinary Stream, Difficulty Urinating, Dysuria, Flank Pain, Hematuria, Pyuria, Nocturia, Urinary Incontinence, Urinary Frequency, Urinary Hesitance, Urinary Urgency, Voiding Freq/Small Amts, Freq UTI, Hx Renal/Bladder Calculi, Hx /Renal Surgery, Bladder Distension, Other - Reproductive: Female Reproductive:Female: absent: As Per HPI, Amenorrhea, Amenorrhea/ Control, Currently Menstual, Cycle <21 Days, Cycle >35 Days, Cycle Variable, Menses 1-7 Days, Menses >/= 8 Days, Menses Variable, Cycle > 4 Weeks Between, No Menses for 6 Months, Heavy Menses, Light Menses, Normal Menses, Spotting Between Cycles , S/P Hysterectomy, Menopausal, Post Menopausal, Premenarche, Abnormal Vaginal Bleeding, Dysmenorrhea, Dyspareunia, Genital Lesions, Genital Pruritis, Pelvic Pain, Prolapse Symptoms, Sexual Dysfunction, Vaginal Discharge, Vaginal Dryness , Vaginal Odor, Vaginal Pruritis, Other - Musculoskeletal Musculoskeletal: As Per HPI - Integumentary Integumentary: absent: As Per HPI, Acne, Alopecia, Bleeding Lesions, Change in Hair, Change in Nails, Change in Pigmentation, Changing Lesions, Dry Skin, Erythema, Furuncle, Hirsutism, Lesions, New Lesions, Non-Healing Lesions, Photosensitivity, Pruritus, Rash, Skin Pain, Skin Ulcer, Sores, Striae, Swelling , Unusual Bruising, Wounds, Jaundice, Other - Neurological Neurological: As Per HPI - Psychiatric Psychiatric: absent: As Per HPI, Abnormal Sleep Pattern, Anhedonia, Anxiety, Auditory Hallucinations, Behavioral Changes, Change in Appetite, Change in Libido, Confusion, Depression, Difficulty Concentrating, Hallucinations, Homicidal Ideation, Hopelessness, Irritability, Memory Loss, Mood Swings, Panic Attacks, Paranoia, Suicidal Ideation, Visual Hallucinations, Tactile Hallucinations, Other - Endocrine Endocrine: absent: As Per HPI, Change in Body Appearance, Change in Libido, Cold Intolorance, Deepening of Voice, Excessive Sweating, Fatigue, Flushing, Heat Intolorance, Increase in Ring/Shoe/Hat Size, Palpitations, Polydipsia, Polyphagia, Polyuria, Other - Hematologic/Lymphatic Hematologic: As Per HPI Past Patient History - Past Medical History & Family History Past Medical History?: Yes Past Family History: Reviewed and not pertinent - Past Social History Smoking Status: Never Smoked - CARDIAC Hx Cardiac Disorders: Yes Hx Hypertension: Yes - PULMONARY Hx Respiratory Disorders: Yes Hx Chronic Obstructive Pulmonary Disease (COPD): Yes - ENDOCRINE/METABOLIC Hx Diabetes Insipidus: Yes Hx Diabetes Mellitus Type 2: Yes Hx Systemic Lupus Erythematosus: Yes - MUSCULOSKELETAL/RHEUMATOLOGICAL Hx Falls: No - PSYCHIATRIC Hx Psychophysiologic Disorder: No Hx Substance Use: No - SURGICAL HISTORY Hx Tonsillectomy: Yes - ANESTHESIA Hx Anesthesia: No Hx Anesthesia Reactions: No Hx Malignant Hyperthermia: No Meds Allergies/Adverse Reactions: Allergies Allergy/AdvReac Type Severity Reaction Status Date / Time No Known Allergies Allergy Verified 03/02/15 15:48 - Medications Medications: Current Medications Acetaminophen (Tylenol 325mg Tab) 650 mg PO Q6H PRN PRN Reason: Fever >100.4 F Last Admin: 05/10/16 15:27 Dose: 650 mg Acetaminophen (Tylenol 325mg Tab) 650 mg PO Q6H PRN PRN Reason: Pain, moderate (4-7) Aspirin (Aspirin Chewable) 81 mg PO DAILY [facility] Last Admin: 05/10/16 09:12 Dose: 81 mg Azathioprine (Imuran) 50 mg PO DAILY [facility] Last Admin: 05/10/16 09:12 Dose: 50 mg Benzonatate (Tessalon Perles) 100 mg PO TID [facility] Last Admin: 05/10/16 17:38 Dose: 100 mg Ergocalciferol (Drisdol 50,000 Intl Units Cap) 1 cap PO QWK [facility] Last Admin: 05/10/16 09:19 Dose: Not Given Sodium Chloride (Sodium Chloride 0.9%) 1,000 mls @ 125 mls/hr IV .Q8H [facility] Last Admin: 05/10/16 12:44 Dose: 125 mls/hr Acyclovir 750 mg/ Sodium (Chloride) 100 mls @ 100 mls/hr IV Q8 [facility] PRN Reason: Protocol Stop: 05/19/16 14:01 Last Admin: 05/10/16 14:16 Dose: 100 mls/hr Ceftriaxone Sodium (Rocephin 2 Gm Ivpb) 100 mls @ 100 mls/hr IVPB DAILY [facility] PRN Reason: Protocol Stop: 05/19/16 11:06 Last Admin: 05/10/16 12:47 Dose: 100 mls/hr Vancomycin HCl (Vancomycin 1gm) 250 mls @ 167 mls/hr IVPB Q12H [facility] PRN Reason: Protocol Stop: 05/19/16 11:01 Last Admin: 05/10/16 12:48 Dose: 167 mls/hr Insulin Human Lispro (Humalog Low) 0 units SC ACHS [facility] PRN Reason: Protocol Last Admin: 05/10/16 17:34 Dose: Not Given Lisinopril (Zestril) 30 mg PO DAILY [facility] Lorazepam (Ativan) 2 mg IVP Q4H PRN; Protocol PRN Reason: Seizure activity Ondansetron HCl (Zofran Inj) 4 mg IVP Q6H PRN PRN Reason: Nausea/Vomiting Pantoprazole Sodium (Protonix Inj) 40 mg IVP DAILY [facility] Last Admin: 05/10/16 09:13 Dose: 40 mg Rivaroxaban (Xarelto) 20 mg PO DAILY [facility] PRN Reason: Protocol Last Admin: 05/10/16 09:13 Dose: 20 mg Physical Exam - Constitutional Appears: Well, Non-toxic - Head Exam Head Exam: ATRAUMATIC, NORMAL INSPECTION, NORMOCEPHALIC - Eye Exam Eye Exam: Normal appearance Pupil Exam: NORMAL ACCOMODATION - ENT Exam ENT Exam: Mucous Membranes Moist, Normal Exam - Neck Exam Neck exam: Positive for: Normal Inspection - Respiratory Exam Respiratory Exam: NORMAL BREATHING PATTERN - Cardiovascular Exam Cardiovascular Exam: REGULAR RHYTHM, +S1, +S2 - GI/Abdominal Exam GI & Abdominal Exam: Normal Bowel Sounds - Extremities Exam Extremities exam: Positive for: normal inspection - Back Exam Back exam: NORMAL INSPECTION - Neurological Exam Neurological exam: Alert, CN II-XII Intact, Normal Gait, Oriented x3, Reflexes Normal - Skin Skin Exam: Dry, Intact, Normal Color Results - Vital Signs Recent Vital Signs: Last Vital Signs Temp 99.1 F 05/10/16 17:20 Pulse 100 H 05/10/16 17:20 Resp 20 05/10/16 17:20 BP 80/53 L 05/10/16 17:20 Pulse Ox 95 05/10/16 03:08 - Labs Result Diagrams: 05/10/16 04:45 05/10/16 04:45 Labs: Laboratory Results - last 24 hr 05/10/16 05/10/16 05/10/16 04:45 12:00 12:17 WBC 8.6 RBC 3.98 Hgb 10.6 L Hct 32.7 L MCV 82.2 MCH 26.6 MCHC 32.4 RDW 16.4 H Plt Count 173 MPV 9.3 Gran % 80.9 H Lymph % (Auto) 14.2 L [place] % (Auto) 4.6 Eos % (Auto) 0.1 L Baso % (Auto) 0.2 Gran # 6.96 H Lymph # 1.2 [place] # 0.4 Eos # 0.0 Baso # 0.02 Sodium 140 Potassium 3.9 Chloride 108 H Carbon Dioxide 22 Anion Gap 14 BUN 20 Creatinine 0.8 Est GFR ( Amer) > 60 Est GFR (Non-Af Amer) > 60 Random Glucose 146 H Lactic Acid 1.8 Calcium 8.1 L Phosphorus 3.1 Magnesium 1.8 Total Bilirubin 0.5 AST 32 ALT 33 Alkaline Phosphatase 54 Total Creatine Kinase 510 H CK-MB (CK-2) 0.6 CK-MB (CK-2) % Cancelled Total Protein 7.4 Albumin 3.2 Globulin 4.1 Albumin/Globulin Ratio 0.8 L Procalcitonin 0.13 L TSH 3rd Generation 0.87 Fluid Type Spinal fluid CSF Volume 1 CSF Appearance Clear/colorless CSF WBC 2.2 CSF RBC 1598.9 H CSF Total Cell Counted TEST NOT PERFORMED CSF Monos/Macrophages TEST NOT PERFORMED CSF Comment TEST NOT PERFORMED CSF Glucose CSF Total Protein 63.0 H 05/10/16 05/10/16 13:00 14:00 WBC RBC Hgb Hct MCV MCH MCHC RDW Plt Count MPV Gran % Lymph % (Auto) [place] % (Auto) Eos % (Auto) Baso % (Auto) Gran # Lymph # [place] # Eos # Baso # Sodium Potassium Chloride Carbon Dioxide Anion Gap BUN Creatinine Est GFR ( Amer) Est GFR (Non-Af Amer) Random Glucose Lactic Acid Calcium Phosphorus Magnesium Total Bilirubin AST ALT Alkaline Phosphatase Total Creatine Kinase 848 H CK-MB (CK-2) 0.5 CK-MB (CK-2) % Cancelled Total Protein Albumin Globulin Albumin/Globulin Ratio Procalcitonin TSH 3rd Generation Fluid Type CSF Volume CSF Appearance CSF WBC CSF RBC CSF Total Cell Counted CSF Monos/Macrophages CSF Comment CSF Glucose 73 H CSF Total Protein Assessment & Plan - Assessment and Plan (Free Text) Assessment: 1. ? Seizures 2. Fever 3. Lupus 4. H/O DVT in past 5. COPD 6. DM II 7. Anemia Plan: ID consult Dr. Perez requested. IV vanco, ceftrioxone, acyclovir started. She is high risk of encapsulated organism due to Imuran use. LP tap requested to be done by Dr. Andrew, neurology. Anti-seizure meds to be held for now. She had fever, might have chills not seizure. H/O DVT, off anticoagulation now. No current DVT. DC Xarelto , started last night. MRI of brain ordered. DVT prophylaxis with heparin 5000 SQ BID. Mild anemia, will monitor blood counts. Discussed with Dr. Andrew, pt's daughter, staff Nurse.
[2016-05-11] MEDS: Sodium Chloride 0.9% 1,000 ML IV SCH ×2 (05:09→12:56)
[2016-05-11 06:45] LABS: ADD MANUAL DIFF? NO
[2016-05-11 07:07] LABS: BLOOD UREA NITROGEN 10 mg/dL (7-21); CALCIUM 8.1 mg/dL (8.4-10.5); CARBON DIOXIDE 22 mmol/L (21-33); CHLORIDE 105 mmol/L (98-107); GFR AFRICAN-AMERICAN > 60; GLUCOSE,RANDOM 155 mg/dL (70-110); PHOSPHOROUS 2.8 mg/dL (2.5-4.5); POTASSIUM 3.9 mmol/L (3.6-5.0); SODIUM 137 mmol/L (132-148)
[2016-05-11 07:08] LABS: ALB/GLOB RATIO 0.8 (1.1-1.8); ALKALINE PHOSPHATASE 56 U/L (38-133); ALT/SGPT 33 U/L (7-56); AST/SGOT 51 U/L (15-39); BASO # 0.02 K/mm3 (0.0-2.0); BASO % 0.2 % (0.0-3.0); BILIRUBIN,TOTAL 0.9 mg/dL (0.2-1.3); HEMATOCRIT 33.8 % (36.0-48.0); LYMPH # 1.4 (1.2-3.4); LYMPH % 14.9 % (22.0-35.0); MAGNESIUM 1.7 mg/dL (1.7-2.2); MEAN CELL VOLUME 82.2 fL (80.0-105.0); MEAN CORPUSCULAR HGB CONC 31.7 g/dl (31.0-37.0); MEAN PLATELET VOLUME 10.2 fl (7.0-11.0); MONO # 0.8 (0.1-0.6); MONO % 7.9 % (1.0-6.0); PLATELET COUNT 186 10^3/uL (120.0-450.0); RED CELL DISTRIBUTION WIDTH 16.7 % (11.5-14.5); TOTAL PROTEIN 7.7 g/dL (5.8-8.3); WHITE BLOOD COUNT 9.5 10^3/ul (4.5-11.0)
[2016-05-11] MEDS: Insulin Lispro (humaLOG) LOW Coverage SC SCH (09:16)
[2016-05-11] MEDS: Pantoprazole 40 mg EC Tab PO SCH (09:29)
--- NOTE | 2016-05-11 10:28 | PN ---
DATE: 05/11/2016 The patient is lying on the bed, in no acute distress. Complains of mild headache. PHYSICAL EXAMINATION: VITAL SIGNS: Her blood pressure is 147/81, heart rate is 110 per minute, breathing at a rate of 16 p er minute, temperature is 101.4 degrees Fahrenheit. HEENT: Head is normocephalic, atraumatic. NECK: Supple. There are no carotid bruits. LUNGS: Clear. CARDIOVASCULAR: S1, S2 audible. No murmurs. ABDOMEN: Soft, nontender, bowel sounds present. NEUROLOGIC EXAMINATION: MENTAL STATUS: The patient is awake, alert, oriented to time, place, person. Speech is fluent. Nam ing and repetition normal. Memory and cognition are intact. CRANIAL NERVES: Pupil on the right is 3 mm, reactive. Left cornea is opaque. Extraocular movements are intact. There is no facial asymmetry. Palate is upgoing bilaterally and tongue is midline. MOTOR: Tone is normal. Power is 5/5 bilaterally in all extremities. Reflexes +2 and symmetrical. Plantars downgoing bilaterally. CEREBELLAR: [id number] shows no dysmetria. LABORATORIES: Reviewed. WBC 9.5, hemoglobin 10.7, hematocrit 33.8 and platelets of 186. Her sodium is 137, potassium 3.9, chloride 105, carbon dioxide content 22, BUN of 10, creatinine 0.8 and glucos e of 155. Her CSF: WBC is 2.2, RBC is 1589, glucose is 73, protein is 63 and CSF cryptococcal antig en is negative. IMPRESSION: 1. Status post seizure. 2. History of systemic lupus erythematosus. RECOMMENDATIONS: 1. The patient to have MRI of the brain without contrast. 2. Please follow up the rest of the results of the CSF. Initial CSF does not suggest acute meningit is. 3. The patient to have an electroencephalogram. 4. Please continue other treatment and supportive care. Thank you for the opportunity to participate in the care of this patient. Davide Andrew MD cc: [id number] TT: 05/11/2016 10:27:16 Confirmation # [id number] Dictation # [id number]
[2016-05-11] MEDS ORDERED: Benzocaine/Menthol (Cepacol) Lozenge MT PRN (12:00)
[2016-05-11] MEDS: Vancomycin 1gm in NS 250ml 250 ML IVPB SCH ×2 (12:30→23:47)
--- NOTE | 2016-05-11 12:30 | PN ---
DATE: 05/11/2016 SUBJECTIVE: The patient is a 50-year-old, seen and examined sitting in chair. Comfortable. Does donato ve some headaches. The patient states she never had seizures before yesterday. Family found her min imally responsive. They called ambulance and she was brought to Emergency Room. According to nephew who found her on the floor face down and shaking. CT scan of the head is negative. PAST MEDICAL HISTORY: Significant for: 1. Chronic obstructive pulmonary disease. 2. History of lupus, on Imuran. 3. History of deep venous thrombosis, was on Xarelto. 4. History of corneal opacity and poor vision. 5. Noninsulin-dependent diabetes. 6. Status post left cornea transplant in 2003. PHYSICAL EXAMINATION: GENERAL: Today, she is awake and alert, communicative. VITAL SIGNS: She is afebrile. She did have T-max 101.4 early this morning and followup is 99.8. Pu lse 102, respirations 20, blood pressure 124/82. LUNGS: Bilateral fair airflow, no rhonchi or crackle. HEART: S1, S2 audible. No murmur. ABDOMEN: Soft, obese, nontender, no rebound, no guarding. NEUROLOGIC: The patient is awake and alert, communicative. Moves all extremities. No focal deficit . LABORATORY: WBC is 9.5, hemoglobin 10.7, hematocrit 33.8, platelets 186. Her PT is 10.8, INR 1.00. Chemistry: Sodium 137, potassium 3.9, chloride 105, CO2 of 22, BUN 10, creatinine 0.8, blood sugar 155. Her initial CPK was 510, followup is 1553. AST 51. Urine tox is negative. Complement level C 3 is 110, C4 is 25. MRI of the brain is pending. X-ray chest is unremarkable. PLAN: Currently, the patient is on acyclovir. She is on vancomycin. She is getting IV fluids. She is on coverage for meningitis and getting Rocephin 2 grams q. 24 hours. She is off of Imuran. I di scussed with the neurologist. Will wait for result of MRI and EEG if she needs to be started on an a ntiepileptic. In the meantime, will continue her coverage for antiviral and for meningitis. The pat ient is still spiking fever, although blood culture and urine cultures are negative. I will order fo r CT scan of the chest to rule out if she did not aspirate when she had the seizure to rule out aspir ation pneumonia. Will reevaluate this patient in the a.m. Yamil Harris MD cc: [id number] TT: 05/11/2016 12:29:36 Confirmation # [id number] Dictation # [id number] mn
--- NOTE | 2016-05-11 12:42 | MRI ---
PROCEDURE: MRI BRAIN WITHOUT CONTRAST HISTORY: seizure COMPARISON: Comparison is made to the previous CT dated 05/09/2016 TECHNIQUE: Multiplanar, multisequence MR images of the brain were obtained without intravenous contrast enhancement. FINDINGS: HEMORRHAGE: None DWI: No evidence of an acute or early subacute infarction. BRAIN PARENCHYMA: No mass effect or edema. No atrophy or chronic microvascular ischemic changes. VENTRICLES: Unremarkable. No hydrocephalus. CRANIUM: Unremarkable. ORBITS: Grossly unremarkable. PARANASAL SINUSES/MASTOIDS: : 8 opacification of the left frontal sinus is noted. Mild sinuses mucosal thickening is also otherwise noted. VASCULAR SYSTEM: Skull base flow voids intact. OTHER FINDINGS: Large empty sella is also seen. IMPRESSION: No evidence of acute intracranial pathology. No evidence of mass lesion mass effect or midline shift. Large sella turcica and empty sella noted. Complete opacification of the left frontal sinus again noted.
[2016-05-11] MEDS: Insulin Lispro (humaLOG) MEDIUM Coverage SC SCH ×3 (12:58→21:54)
--- NOTE | 2016-05-11 15:04 | CT ---
PROCEDURE: CT Chest without contrast HISTORY: fever/SOB COMPARISON: Comparison is made to the previous study dated 03/02/2015 TECHNIQUE: Contiguous axial images were obtained through the chest without intravenous contrast enhancement. Sagittal and coronal reconstructions were performed. Radiation dose (DLP): 730.76 mGy-cm. FINDINGS: LUNGS: Small opacity at the left lung base may represent atelectasis. The possibility of pneumonia is less likely. Otherwise no significant interval change in the lungs since the previous exam. MEDIASTINUM: The thoracic aorta is mildly ectatic and tortuous. Normal sized heart. Heart is mildly enlarged. Main pulmonary artery is upper normal limit in size. No lymphadenopathy. PLEURA: Trace left pleural effusions seen. BONES: No fracture. No destructive lesion. UPPER ABDOMEN: No evidence of acute pathology. IVC filter seen in place. OTHER FINDINGS: None. IMPRESSION: Small opacity at the left lung base associated with trace left pleural effusion. Findings may represent atelectasis versus pneumonia. Otherwise no significant interval change compared to the previous study dated 03/02/2015
--- NOTE | 2016-05-11 15:17 | CP.PCM.PN ---
Subjective - Date & Time of Evaluation Date of Evaluation: 05/11/16 Time of Evaluation: 09:35 - Subjective Subjective: Patient is comfortable, not in distress, still having intermittent fevers, no headache. Objective - Vital Signs/Intake and Output Vital Signs (last 24 hours): Temp Pulse Resp BP Pulse Ox 99.8 F H 102 H 20 124/82 97 05/11/16 11:45 05/11/16 11:45 05/11/16 11:45 05/11/16 11:45 05/11/16 06:00 Intake and Output: 05/11/16 05/11/16 06:59 18:59 Intake Total 3595 Output Total 1400 Balance 2195 - Medications Medications: Current Medications Acetaminophen (Tylenol 325mg Tab) 650 mg PO Q6H PRN PRN Reason: Fever >100.4 F Last Admin: 05/11/16 09:30 Dose: 650 mg Acetaminophen (Tylenol 325mg Tab) 650 mg PO Q6H PRN PRN Reason: Pain, moderate (4-7) Aspirin (Aspirin Chewable) 81 mg PO DAILY [facility] Last Admin: 05/11/16 09:29 Dose: 81 mg Azathioprine (Imuran) 50 mg PO DAILY [facility] Last Admin: 05/11/16 09:29 Dose: 50 mg Benzocaine/Menthol (Cepacol Sore Throat) 1 silvia MT Q2H PRN PRN Reason: Sore Throat Ergocalciferol (Drisdol 50,000 Intl Units Cap) 1 cap PO QWK [facility] Last Admin: 05/10/16 09:19 Dose: Not Given Heparin Sodium (Porcine) (Heparin) 5,000 units SC Q12 [facility] PRN Reason: Protocol Last Admin: 05/11/16 09:29 Dose: 5,000 units Acyclovir 750 mg/ Sodium (Chloride) 100 mls @ 100 mls/hr IV Q8 [facility] PRN Reason: Protocol Stop: 05/19/16 14:01 Last Admin: 05/11/16 15:02 Dose: 100 mls/hr Ceftriaxone Sodium (Rocephin 2 Gm Ivpb) 100 mls @ 100 mls/hr IVPB DAILY [facility] PRN Reason: Protocol Stop: 05/19/16 11:06 Last Admin: 05/11/16 09:27 Dose: 100 mls/hr Vancomycin HCl (Vancomycin 1gm) 250 mls @ 167 mls/hr IVPB Q12H [facility] PRN Reason: Protocol Stop: 05/19/16 11:01 Last Admin: 05/11/16 12:30 Dose: 167 mls/hr Sodium Chloride (Sodium Chloride 0.9%) 1,000 mls @ 75 mls/hr IV .[id number] [facility] Last Admin: 05/11/16 12:56 Dose: 75 mls/hr Insulin Human Lispro (Humalog Med) 0 units SC ACHS [facility] PRN Reason: Protocol Last Admin: 05/11/16 12:58 Dose: 3 units Lisinopril (Zestril) 30 mg PO DAILY [facility] Loratadine (Claritin) 10 mg PO DAILY [facility] Last Admin: 05/11/16 12:59 Dose: 10 mg Lorazepam (Ativan) 2 mg IVP Q4H PRN; Protocol PRN Reason: Seizure activity Ondansetron HCl (Zofran Inj) 4 mg IVP Q6H PRN PRN Reason: Nausea/Vomiting Pantoprazole Sodium (Protonix Ec Tab) 40 mg PO ACB [facility] Last Admin: 05/11/16 09:29 Dose: 40 mg - Labs Labs: 05/11/16 06:30 05/11/16 06:30 PT 10.8 Seconds (9.9-11.8) 05/09/16 23:20 INR 1.00 (0.93-1.08) 05/09/16 23:20 APTT 28.0 Seconds (23.7-30.8) 05/09/16 23:20 - Constitutional Appears: Non-toxic, No Acute Distress - Head Exam Head Exam: NORMAL INSPECTION - ENT Exam ENT Exam: Mucous Membranes Moist - Neck Exam Neck Exam: absent: Lymphadenopathy, Meningismus - Respiratory Exam Respiratory Exam: Decreased Breath Sounds - Cardiovascular Exam Cardiovascular Exam: +S1, +S2 - GI/Abdominal Exam GI & Abdominal Exam: Soft. absent: Tenderness Assessment and Plan - Assessment and Plan (Free Text) Plan: Assessment Systemic Inflammatory Response Syndrome, R/O sepsis from acute sinusitis; so far no evidence of meningitis in a patient who presented with apparent episode of seizure S/P tonsillectomy history of DVT systemic lupus erythematosus COPD HTN DM left eye blindness Plan Continue Vancomycin, Rocephin and Acyclovir pending final CSF cx results and HSV PCR; reviewed MRI which only showed opacification of sinus Will monitor clinically
[2016-05-11] MEDS ORDERED: Insulin Lispro (humaLOG) MEDIUM Coverage SC SCH (16:30)
[2016-05-12] MEDS: Sodium Chloride 0.9% 1,000 ML IV SCH ×2 (04:31→12:12)
[2016-05-12 07:22] LABS: ADD MANUAL DIFF? NO
[2016-05-12 07:26] LABS: BASO # 0.02 K/mm3 (0.0-2.0); BASO % 0.2 % (0.0-3.0); EOS % 0.1 % (1.5-5.0); GRAN # 10.14 (1.4-6.5); GRAN % 79.4 % (50.0-68.0); HEMATOCRIT 33.5 % (36.0-48.0); LYMPH # 1.5 (1.2-3.4); LYMPH % 11.8 % (22.0-35.0); MEAN CELL VOLUME 82.5 fL (80.0-105.0); MEAN CORPUSCULAR HEMOGLOBIN 26.1 pg (25.0-35.0); MEAN CORPUSCULAR HGB CONC 31.6 g/dl (31.0-37.0); MEAN PLATELET VOLUME 10.9 fl (7.0-11.0); MONO # 1.1 (0.1-0.6); MONO % 8.5 % (1.0-6.0); PLATELET COUNT 187 10^3/uL (120.0-450.0); RED CELL DISTRIBUTION WIDTH 16.7 % (11.5-14.5); WHITE BLOOD COUNT 12.8 10^3/ul (4.5-11.0)
[2016-05-12 08:13] LABS: ALB/GLOB RATIO 0.7 (1.1-1.8); ALKALINE PHOSPHATASE 57 U/L (38-133); ALT/SGPT 36 U/L (7-56); AST/SGOT 87 U/L (15-39); BILIRUBIN,TOTAL 1.2 mg/dL (0.2-1.3); BLOOD UREA NITROGEN 9 mg/dL (7-21); CALCIUM 7.8 mg/dL (8.4-10.5); CARBON DIOXIDE 23 mmol/L (21-33); CHLORIDE 105 mmol/L (98-107); GFR AFRICAN-AMERICAN > 60; GLUCOSE,RANDOM 153 mg/dL (70-110); MAGNESIUM 1.9 mg/dL (1.7-2.2); PHOSPHOROUS 2.4 mg/dL (2.5-4.5); POTASSIUM 3.8 mmol/L (3.6-5.0); SODIUM 139 mmol/L (132-148); TOTAL PROTEIN 7.7 g/dL (5.8-8.3)
[2016-05-12] MEDS: Pantoprazole 40 mg EC Tab PO SCH (09:30)
[2016-05-12] MEDS: Insulin Lispro (humaLOG) MEDIUM Coverage SC SCH ×4 (09:35→22:57)
--- NOTE | 2016-05-12 11:27 | PN ---
DATE: 05/12/2016 SUBJECTIVE: The patient is lying on the bed, in no acute distress. Denies having any dizziness. Do es complain of headache. PHYSICAL EXAMINATION: VITAL SIGNS: Her blood pressure is 113/76, heart rate is 108 per minute, breathing at a rate of 16 p er minute, temperature is 99.1 degrees Fahrenheit. HEENT: Normocephalic, atraumatic. NECK: Supple. There are no carotid bruits. LUNGS: Clear. CARDIOVASCULAR: S1, S2 audible. No murmurs. ABDOMEN: Soft, nontender, bowel sounds present. NEUROLOGIC EXAMINATION: MENTAL STATUS: The patient is awake, alert, oriented to time, place and person. Speech is fluent. Naming and repetition normal. Memory and cognition are intact. CRANIAL NERVES: Pupil on the right is 4 mm reactive. The left cornea is opaque. Extraocular moveme nts are intact. There is decreased visual acuity in the left side. MOTOR: Tone is normal. Power is 5/5 bilaterally in all extremities. Reflexes +1 and symmetrical. Plantars downgoing bilaterally. LABORATORY DATA: Reviewed, shows WBC of 12.8, hemoglobin 10.6, hematocrit 33.5 and platelets of 187. Sodium is 139, potassium 3.8, chloride of 105, carbon dioxide content of 23, BUN of 9, creatinine 0 .8, and glucose of 153. Her CSF VDRL is nonreactive. IMPRESSION: 1. New onset of seizure. 2. History of lupus. RECOMMENDATIONS: The patient had MRI of the brain done, which shows no evidence of acute intracranial pathology. No e vidence of mass lesion, mass effect or midline shift. Large sella turcica and empty sella noted. RECOMMENDATIONS: 1. The patient has no evidence of acute meningitis. 2. The patient to have an electroencephalogram. 3. Will hold off any antiepileptic medication at present. 4. Please continue supportive care and other treatment. Thank you for the opportunity to participate in the care of this patient. Davide Andrew MD cc: [id number] TT: 05/12/2016 11:26:29 Confirmation # [id number] Dictation # [id number] mn
[2016-05-12] MEDS: Vancomycin 1gm in NS 250ml 250 ML IVPB SCH (12:11)
--- NOTE | 2016-05-12 12:46 | CP.PCM.PN ---
Subjective - Date & Time of Evaluation Date of Evaluation: 05/12/16 Time of Evaluation: 08:45 - Subjective Subjective: Comfortable in bed, eating her breakfast well, no nausea, no headache, still had fevers overnight but currently feels better. Objective - Vital Signs/Intake and Output Vital Signs (last 24 hours): Temp Pulse Resp BP Pulse Ox 99.1 F 108 H 20 113/76 95 05/12/16 06:00 05/12/16 06:00 05/12/16 06:00 05/12/16 06:00 05/12/16 06:00 Intake and Output: 05/12/16 05/12/16 06:59 18:59 Intake Total 1425 Output Total 1400 Balance 25 - Medications Medications: Current Medications Acetaminophen (Tylenol 325mg Tab) 650 mg PO Q6H PRN PRN Reason: Fever >100.4 F Last Admin: 05/11/16 23:47 Dose: 650 mg Acetaminophen (Tylenol 325mg Tab) 650 mg PO Q6H PRN PRN Reason: Pain, moderate (4-7) Aspirin (Aspirin Chewable) 81 mg PO DAILY [facility] Last Admin: 05/11/16 09:29 Dose: 81 mg Azathioprine (Imuran) 50 mg PO DAILY [facility] Last Admin: 05/11/16 09:29 Dose: 50 mg Benzocaine/Menthol (Cepacol Sore Throat) 1 silvia MT Q2H PRN PRN Reason: Sore Throat Ergocalciferol (Drisdol 50,000 Intl Units Cap) 1 cap PO QWK [facility] Last Admin: 05/10/16 09:19 Dose: Not Given Heparin Sodium (Porcine) (Heparin) 5,000 units SC Q12 [facility] PRN Reason: Protocol Last Admin: 05/11/16 21:54 Dose: 5,000 units Acyclovir 750 mg/ Sodium (Chloride) 100 mls @ 100 mls/hr IV Q8 [facility] PRN Reason: Protocol Stop: 05/19/16 14:01 Last Admin: 05/12/16 05:14 Dose: 100 mls/hr Ceftriaxone Sodium (Rocephin 2 Gm Ivpb) 100 mls @ 100 mls/hr IVPB DAILY [facility] PRN Reason: Protocol Stop: 05/19/16 11:06 Last Admin: 05/11/16 09:27 Dose: 100 mls/hr Vancomycin HCl (Vancomycin 1gm) 250 mls @ 167 mls/hr IVPB Q12H [facility] PRN Reason: Protocol Stop: 05/19/16 11:01 Last Admin: 05/11/16 23:47 Dose: 167 mls/hr Sodium Chloride (Sodium Chloride 0.9%) 1,000 mls @ 75 mls/hr IV .[id number] [facility] Last Admin: 05/12/16 04:31 Dose: Not Given Insulin Human Lispro (Humalog Med) 0 units SC ACHS [facility] PRN Reason: Protocol Last Admin: 05/11/16 21:54 Dose: Not Given Lisinopril (Zestril) 30 mg PO DAILY [facility] Loratadine (Claritin) 10 mg PO DAILY [facility] Last Admin: 05/11/16 12:59 Dose: 10 mg Lorazepam (Ativan) 2 mg IVP Q4H PRN; Protocol PRN Reason: Seizure activity Ondansetron HCl (Zofran Inj) 4 mg IVP Q6H PRN PRN Reason: Nausea/Vomiting Pantoprazole Sodium (Protonix Ec Tab) 40 mg PO ACB [facility] Last Admin: 05/11/16 09:29 Dose: 40 mg - Labs Labs: 05/12/16 06:00 05/11/16 06:30 PT 10.8 Seconds (9.9-11.8) 05/09/16 23:20 INR 1.00 (0.93-1.08) 05/09/16 23:20 APTT 28.0 Seconds (23.7-30.8) 05/09/16 23:20 - Constitutional Appears: Non-toxic, No Acute Distress - Head Exam Head Exam: NORMAL INSPECTION - ENT Exam ENT Exam: Mucous Membranes Moist - Neck Exam Neck Exam: absent: Lymphadenopathy, Meningismus - Respiratory Exam Respiratory Exam: Decreased Breath Sounds - Cardiovascular Exam Cardiovascular Exam: +S1, +S2 - GI/Abdominal Exam GI & Abdominal Exam: Soft. absent: Tenderness Assessment and Plan - Assessment and Plan (Free Text) Plan: Assessment Systemic Inflammatory Response Syndrome, R/O sepsis from acute sinusitis; no evidence of meningitis in a patient who presented with apparent episode of seizure S/P tonsillectomy history of DVT systemic lupus erythematosus COPD HTN DM left eye blindness Plan will d/c Vancomycin, Rocephin; blood cx, urine cx and CSF cx are negative and the CSF did not have pleocytosis and MRI brain does not show suggestions of meningitis or encephalitis; continue Acyclovir for now pending HSV PCR; reviewed MRI which only showed opacification of sinus - will give patient Augmentin Will continue to monitor clinically
--- NOTE | 2016-05-12 13:01 | PN ---
DATE: 05/12/2016 SUBJECTIVE: The patient is a 50-year-old, seen and examined, sitting in chair, comfortable. No naus ea, vomiting, no diarrhea. Headache is better. She complained of stuffy nose and scanty cough. PHYSICAL EXAMINATION: VITAL SIGNS: She did spike a fever last night to 100.3. This morning it is 99.1. Pulse 108, respir ations 20, blood pressure 113/76. LUNGS: Bilateral fair airflow, no rhonchi or crackle. HEART: S1, S2 audible. ABDOMEN: Soft, obese, nontender, no rebound, no guarding. NEUROLOGIC: The patient is awake and alert, communicative, moves all extremities. LABORATORY EXAMINATION: WBC is 12.8, hemoglobin 10.6, hematocrit 33.5, platelet of 187. Chemistry: Sodium 139, potassium 3.8, chloride 105, CO2 of 23, BUN 9, creatinine 0.8, blood sugar 153. Phospho rody is 2.4. CPK 1553. is 1598. Her glucose is 73. Total protein 63. Cryptococcal antigen is negative. VDRL is negative. Urine drug screen is negative. Lupus antibody is 1. Compliment level s are within normal limits. New onset of seizures, etiology still undetermined. MRI is negative. Shows empty sella turcica. CT scan of the chest, small opacity at the left lung base associated with trace left pleural effusion. Could be atelectasis versus pneumonia. Procalcitonin 0.13, so pneumonia could be unlikely. ASSESSMENT: 1. History of lupus. 2. New onset of seizure. 3. Non-insulin dependent diabetes. 4. Hypertension. 5. Acute maxillary sinusitis. PLAN: Currently, patient is on aspirin. She is getting lozenges and Claritin. She is on DVT prophyl axis. She is getting Rocephin. She is on vancomycin and acyclovir. Awaiting EEG. Once the result is available, we will make plan if she needs to be on antiepileptic. Will watch her fever pattern for the next 24 hours. If she does not spike in the next 24 hours, will make discharge plan in a.m. Yamil Harris MD cc: [phone] TT: 05/12/2016 13:00:52 Confirmation # [id number] Dictation # [id number] rn
--- NOTE | 2016-05-12 15:26 | EEG ---
DATE: 05/11/2016 INTRODUCTION: This is a digitally recorded EEG monitoring using standard EEG montages. BACKGROUND RHYTHM: The EEG shows a background activity of 9 Hz alpha activity in parietooccipital re gion. The EEG activity is bilaterally symmetrical and synchronous. There is attenuation of the back ground activity on eye opening. A small amount of movement artifact noticed in this EEG recording. ABNORMAL POTENTIALS: No spikes, sharp waves or focal slowing was seen. PHOTIC STIMULATION AND HYPERVENTILATION: Photic stimulation did not reveal any abnormality. Hyperve ntilation was not performed. IMPRESSION: Normal electroencephalogram. No epileptiform activity seen in this EEG recording. Davide Andrew MD cc: [id number] TT: 05/12/2016 15:25:40 Confirmation # [id number] Dictation # [id number] mn
[2016-05-12 16:27] VITALS: RESP 20
[2016-05-12] MEDS: Amoxicillin-Clav 875-125 mg Tab PO SCH (22:55)
[2016-05-13] MEDS: Sodium Chloride 0.9% 1,000 ML IV SCH (06:06)
[2016-05-13] MEDS: Insulin Lispro (humaLOG) MEDIUM Coverage SC SCH ×3 (08:00→17:22)
[2016-05-13] MEDS: Pantoprazole 40 mg EC Tab PO SCH (10:07)
[2016-05-13] MEDS: Amoxicillin-Clav 875-125 mg Tab PO SCH ×2 (10:08→22:33)
--- NOTE | 2016-05-13 11:37 | PN ---
DATE: 05/13/2016 SUBJECTIVE: The patient is sitting on the bed, in no acute distress, complains of a mild headache. PHYSICAL EXAMINATION: VITAL SIGNS: Her blood pressure is 111/75, heart rate is 102 per minute, breathing at a rate of 16 p er minute, temperature is 99 degrees Fahrenheit. HEENT: Head is normocephalic, atraumatic. NECK: Supple. There are no carotid bruits. LUNGS: Clear. CARDIOVASCULAR: S1, S2 audible. No murmurs. ABDOMEN: Soft, nontender. Bowel sounds present. NEUROLOGIC EXAMINATION: MENTAL STATUS: The patient is awake, alert, oriented to time, place and person. Speech is fluent. Naming and repetition are normal. Memory and cognition are intact. CRANIAL NERVES: Pupil on the right is 3 mm, reactive to light. The left cornea is opaque. Extraocu lar movements are intact. There is no facial asymmetry. Palate is upgoing bilaterally and tongue is midline. MOTOR: Tone is normal. Power is 5/5 bilaterally in all extremities. Reflexes +1 and symmetrical. LABORATORY DATA: Reviewed, shows WBC of 12.8, hemoglobin of 10.6, hematocrit 33.5 and platelets of 1 87. Her glucose is 172. IMPRESSION: 1. New onset of seizure. 2. History of systemic lupus erythematosus. RECOMMENDATIONS: 1. The patient had an electroencephalogram which is normal. 2. The patient had no further seizures. 3. I will hold off antiepileptic medication. The patient may require an electroencephalogram which may be done as an outpatient. If that shows any abnormality, will consider starting her on antiepile ptic medication 4. Please continue supportive care and other treatment. Thank you for the opportunity to participate in the care of this patient. Davide Andrew MD cc: [id number] TT: 05/13/2016 10:49:38 Confirmation # [id number] Dictation # [id number] mn
--- NOTE | 2016-05-13 20:48 | PN ---
DATE: 05/13/2016 SUBJECTIVE: The patient is a 50-year-old, seen and examined, sitting in chair, seems to be a little better. Sinus pressure is better, sore throat is improving. No more fever or chills. PHYSICAL EXAMINATION: VITAL SIGNS: She is afebrile, pulse 94, respirations 20, blood pressure 115/77. LUNGS: Bilateral good airflow, no rhonchi or crackle. HEART: S1, S2 audible. No murmur. ABDOMEN: Soft, obese, nontender, no rebound, no guarding. NEUROLOGIC: She is awake and alert, communicative. Moves all extremities. LABORATORY EXAMINATION: Blood sugar is 246. Phosphorus 2.4. Her blood culture and urine cultures a re negative. CT scan of the chest is unremarkable. MRI of the brain shows empty sella turcica. ASSESSMENT: 1. New onset of seizures. 2. Hypertension. 3. Lupus. 4. Noninsulin dependent diabetes. 5. Acute sinusitis. PLAN: We will continue patient on current medication. We will monitor her temperature pattern. If she remains afebrile, we will make discharge plan in a.m. Discussed with neurologist. There is no p benigno to start her on antiseizure medication. Yamil Harris MD cc: [phone] TT: 05/13/2016 20:47:45 Confirmation # [id number] Dictation # [id number] nyla
[2016-05-14] MEDS: Insulin Lispro (humaLOG) MEDIUM Coverage SC SCH ×2 (07:30→12:14)
[2016-05-14] MEDS: Pantoprazole 40 mg EC Tab PO SCH (08:21)
[2016-05-14 08:44] VITALS: BP 121/79; PULSE 87; TEMP 97.9; O2SAT 100
[2016-05-14] MEDS: Amoxicillin-Clav 875-125 mg Tab PO SCH (09:43)
--- NOTE | 2016-05-14 12:38 | CP.PCM.PN ---
Subjective - Date & Time of Evaluation Date of Evaluation: 05/14/16 Time of Evaluation: 10:40 - Subjective Subjective: No more fevers, less headache, no nausea or vomiting, no diarrhea. Objective - Vital Signs/Intake and Output Vital Signs (last 24 hours): Temp Pulse Resp BP Pulse Ox 97.9 F 87 20 121/79 100 05/14/16 08:00 05/14/16 08:00 05/14/16 08:00 05/14/16 08:00 05/14/16 08:00 Intake and Output: 05/14/16 05/14/16 06:59 18:59 Intake Total 600 Output Total 400 Balance 200 - Medications Medications: Current Medications Acetaminophen (Tylenol 325mg Tab) 650 mg PO Q6H PRN PRN Reason: Fever >100.4 F Last Admin: 05/12/16 16:07 Dose: 650 mg Acetaminophen (Tylenol 325mg Tab) 650 mg PO Q6H PRN PRN Reason: Pain, moderate (4-7) Last Admin: 05/13/16 22:32 Dose: 650 mg Amoxicillin/Clavulanate Potassium (Augmentin 875 Mg-125 Mg Tab) 1 tab PO Q12 [facility] PRN Reason: Protocol Last Admin: 05/14/16 09:43 Dose: 1 tab Aspirin (Aspirin Chewable) 81 mg PO DAILY [facility] Last Admin: 05/14/16 09:43 Dose: 81 mg Azathioprine (Imuran) 50 mg PO DAILY [facility] Last Admin: 05/14/16 09:44 Dose: 50 mg Benzocaine/Menthol (Cepacol Sore Throat) 1 silvia MT Q2H PRN PRN Reason: Sore Throat Last Admin: 05/13/16 13:21 Dose: 1 silvia Ergocalciferol (Drisdol 50,000 Intl Units Cap) 1 cap PO QWK [facility] Last Admin: 05/10/16 09:19 Dose: Not Given Heparin Sodium (Porcine) (Heparin) 5,000 units SC Q12 [facility] PRN Reason: Protocol Last Admin: 05/14/16 09:43 Dose: 5,000 units Insulin Human Lispro (Humalog Med) 0 units SC ACHS [facility] PRN Reason: Protocol Last Admin: 05/14/16 07:30 Dose: Not Given Lisinopril (Zestril) 30 mg PO DAILY [facility] Loratadine (Claritin) 10 mg PO DAILY [facility] Last Admin: 05/14/16 09:44 Dose: 10 mg Lorazepam (Ativan) 2 mg IVP Q4H PRN; Protocol PRN Reason: Seizure activity Ondansetron HCl (Zofran Inj) 4 mg IVP Q6H PRN PRN Reason: Nausea/Vomiting Pantoprazole Sodium (Protonix Ec Tab) 40 mg PO ACB [facility] Last Admin: 05/14/16 08:21 Dose: 40 mg Valacyclovir HCl (Valtrex) 1 gm PO TID [facility] PRN Reason: Protocol Stop: 05/22/16 14:01 - Labs Labs: 05/12/16 06:00 05/12/16 06:00 PT 10.8 Seconds (9.9-11.8) 05/09/16 23:20 INR 1.00 (0.93-1.08) 05/09/16 23:20 APTT 28.0 Seconds (23.7-30.8) 05/09/16 23:20 - Constitutional Appears: Non-toxic, No Acute Distress - Head Exam Head Exam: NORMAL INSPECTION - ENT Exam ENT Exam: Mucous Membranes Moist - Neck Exam Neck Exam: absent: Lymphadenopathy, Meningismus - Respiratory Exam Respiratory Exam: Decreased Breath Sounds - Cardiovascular Exam Cardiovascular Exam: +S1, +S2 - GI/Abdominal Exam GI & Abdominal Exam: Soft. absent: Tenderness Assessment and Plan - Assessment and Plan (Free Text) Plan: Assessment consider sepsis from acute sinusitis, clinically improving; R/O herpes encephalitis; no evidence of meningitis in a patient who presented with apparent episode of seizure S/P tonsillectomy history of DVT systemic lupus erythematosus COPD HTN DM left eye blindness Plan blood cx, urine cx and CSF cx are negative and the CSF did not have pleocytosis and MRI brain does not show suggestions of meningitis or encephalitis; will change Acyclovir to PO Valtrex for another 7 days pending HSV PCR; reviewed MRI which only showed opacification of sinus - continue Augmentin (day 3 of 10 days) Will continue to monitor clinically while the patient is in the hospital - discussed with Dr. Harris
--- NOTE | 2016-05-14 14:57 | DS ---
The patient is a 50-year-old, seen and examined, sitting in chair, comfortable. She states she feels a lot better. No headache. Still has scanty cough. PHYSICAL EXAMINATION: VITAL SIGNS: She is afebrile. Pulse 87, respirations 20, blood pressure 121/79. LUNGS: Bilateral good airflow, no rhonchi or crackle. HEART: S1, S2 audible. No murmur. ABDOMEN: Soft, nontender, no rebound, no guarding. NEUROLOGIC: The patient is awake and alert, communicative. Moves all extremities. She has right vi sual impairment because of corneal opacity. Her MRI of the brain positive for empty sella turcica. CT scan of the chest is unremarkable. Howeve r, she has maxillary sinusitis. ASSESSMENT: 1. The onset of seizures, but EEG is negative and brain MRI is negative. 2. History of lupus, but complement level is within normal limits, so it is not lupus cerebritis. 3. Maxillary sinusitis. 4. Non-insulin dependent diabetes. 5. Hypertension. PLAN: Discussed with ID. We will discharge patient home on Augmentin 500 t.i.d. for a week and she will be discharged home on Valtrex 1 gram p.o. t.i.d. and follow up the patient in office in a week. Yamil Harris MD cc: [phone] TT: 05/14/2016 14:56:52 tn
== END 2016-05-14 16:23 | disposition home or self-care (01) | DRG 101 ==
LOC: ED 23:03 → ERH 05-10 03:05 → 2RNO 05-10 04:32 → 5RNO 05-12 14:44
PROVIDERS: ADMIT Internal Medicine; ATTEND Internal Medicine
PROC: 009U3ZX Drainage of Spinal Canal, Percutaneous Approach, Diagnostic (ICD-10-PCS; principal; 2016-05-10)
DX: R56.9 Unspecified convulsions (principal); M32.9 Systemic lupus erythematosus, unspecified; R65.10 Systemic inflammatory response syndrome (SIRS) of non-infectious origin without acute organ dysfunction; I10 Essential (primary) hypertension; E11.9 Type 2 diabetes mellitus without complications; J01.00 Acute maxillary sinusitis, unspecified; D64.9 Anemia, unspecified; J44.9 Chronic obstructive pulmonary disease, unspecified; H53.8 Other visual disturbances; R51 Headache; Z94.7 Corneal transplant status; Z79.84 Long term (current) use of oral hypoglycemic drugs; Z79.82 Long term (current) use of aspirin; Z82.49 Family history of ischemic heart disease and other diseases of the circulatory system; Z86.718 Personal history of other venous thrombosis and embolism; Z82.5 Family history of asthma and other chronic lower respiratory diseases; Z83.3 Family history of diabetes mellitus

== ENCOUNTER 2017-07-07 08:34 | Observation (INO) | payer BC ==
[2017-07-07] MEDS ORDERED: Sodium Chloride 0.9% 1,000 ML IV STA (09:27)
[2017-07-07 09:37] LABS: ALT/SGPT 31 U/L (7-56); AST/SGOT 28 U/L (14-36); BLOOD UREA NITROGEN 17 mg/dL (7-21); GFR AFRICAN-AMERICAN > 60; GFR NON-AFRICAN AMERICAN > 60
[2017-07-07 09:41] LABS: BASO # 0.02 K/mm3 (0.0-2.0); BASO % 0.5 % (0.0-3.0); EOS # 0.1 (0.0-0.7); EOS % 1.3 % (1.5-5.0); GRAN # 2.29 (1.4-6.5); GRAN % 60.9 % (50.0-68.0); HEMOGLOBIN 12.3 g/dL (12.0-16.0); LYMPH # 1.1 (1.2-3.4); LYMPH % 28.5 % (22.0-35.0); MEAN CELL VOLUME 86.5 fl (80.0-105.0); MEAN CORPUSCULAR HEMOGLOBIN 28.2 pg (25.0-35.0); MEAN CORPUSCULAR HGB CONC 32.6 g/dl (31.0-37.0); MEAN PLATELET VOLUME 9.5 fl (7.0-11.0); MONO # 0.3 (0.1-0.6); MONO % 8.8 % (1.0-6.0); RBC 4.36 10^6/uL (3.5-6.1); RED CELL DISTRIBUTION WIDTH 14.9 % (11.5-14.5); WHITE BLOOD COUNT 3.8 10^3/ul (4.5-11.0)
[2017-07-07 09:46] LABS: INR 1.02 (0.93-1.08); PARTIAL THROMBOPLASTIN TIME 32.3 Seconds (25.1-36.5); PROTHROMBIN TIME 11.7 SECONDS (9.4-12.5)
[2017-07-07 09:48] LABS: TROPONIN I < 0.01 ng/mL
--- NOTE | 2017-07-07 10:19 | CT ---
PROCEDURE: CT HEAD WITHOUT CONTRAST. HISTORY: dizziness COMPARISON: 05/09/2016 TECHNIQUE: Axial computed tomography images were obtained through the head/brain without intravenous contrast. Radiation dose: Total exam DLP = 744 mGy-cm. This CT exam was performed using one or more of the following dose reduction techniques: Automated exposure control, adjustment of the mA and/or kV according to patient size, and/or use of iterative reconstruction technique. FINDINGS: HEMORRHAGE: No intracranial hemorrhage. BRAIN: No mass effect or edema. No atrophy or chronic microvascular ischemic changes. VENTRICLES: Unremarkable. No hydrocephalus. CALVARIUM: Unremarkable. PARANASAL SINUSES: Unremarkable as visualized. No significant inflammatory changes. MASTOID AIR CELLS: Unremarkable as visualized. No inflammatory changes. OTHER FINDINGS: None. IMPRESSION: No acute findings
[2017-07-07 10:26] LABS: PH,URINE 5.5 (4.7-8.0); URINE BILIRUBIN NEGATIVE (NEGATIVE); URINE BLOOD NEGATIVE (NEGATIVE); URINE GLUCOSE (UA) NEGATIVE (NEGATIVE); URINE LEUKOCYTE ESTERASE NEGATIVE Leu/uL (NEGATIVE); URINE PROTEIN NEGATIVE mg/dL (<30 mg/dL); URINE UROBILINOGEN 0.2 E.U./dL (<1 E.U./dL)
[2017-07-07 10:27] LABS: URINE APPEARANCE CLEAR (CLEAR); URINE COLOR YELLOW (YELLOW)
--- NOTE | 2017-07-07 10:36 | ED PDOC ---
Arrival/HPI - General Chief Complaint: Dizziness/Lightheaded Time Seen by Provider: 07/07/17 09:07 Historian: Patient - History of Present Illness Narrative History of Present Illness (Text): 07/07/17 10:26 51yo female with Past medical history of hypertension, Lupus, and Diabetes who present with complaint of positional dizziness x 2days. Patient describes the dizziness as spinning sensation, usually when she stands up to ambulate. she states she has been taking antibiotics for sinusitis x 2weeks now. Denies tinnitus, fever, chills, chest pain, SOB, focal weakness, slurred speech, headache, photophobia, nausea, abdominal pain, any other complaint. Past Medical History - Provider Review Nursing Documentation Reviewed: Yes - Infectious Disease Hx of Infectious Diseases: None - Reproductive Menopause: Yes - Cardiac Hx Cardiac Disorders: Yes Hx Hypertension: Yes - Pulmonary Hx Respiratory Disorders: Yes Hx Chronic Obstructive Pulmonary Disease (COPD): Yes - Renal Hx Renal Disorder: No - Endocrine/Metabolic Hx Diabetes Mellitus Type 2: Yes Hx Systemic Lupus Erythematosus: Yes - Musculoskeletal/Rheumatological Hx Falls: No - Psychiatric Hx Psychophysiologic Disorder: No Hx Substance Use: No - Surgical History Hx Tonsillectomy: Yes - Anesthesia Hx Anesthesia: No Hx Anesthesia Reactions: No Hx Malignant Hyperthermia: No Family/Social History - Physician Review Nursing Documentation Reviewed: Yes Family/Social History: Unknown Family HX Smoking Status: Never Smoked Hx Alcohol Use: No Hx Substance Use: No Allergies/Home Meds Allergies/Adverse Reactions: Allergies No Known Allergies Allergy (Verified 07/07/17 16:29) Home Medications: Home Meds Medication Instructions Recorded Confirmed Ergocalciferol (Vitamin D2) 50,000 iu PO QWK 03/02/15 07/07/17 [Vitamin D] Furosemide [Lasix] 20 mg PO DAILY 03/02/15 07/07/17 Famotidine [Pepcid] 40 mg PO DAILY 05/10/16 07/07/17 Glimepiride 2 mg PO BID 05/10/16 07/07/17 MetFORMIN [glucoPHAGE] 1,000 mg PO BID 05/10/16 07/07/17 Acyclovir 5% [Zovirax 5% Oint] 5 % TOP BID 07/07/17 07/07/17 Cefuroxime Axetil [Cefuroxime] 500 mg PO BID 07/07/17 07/07/17 Desloratadine [Clarinex] 5 mg PO DAILY 07/07/17 07/07/17 Desloratadine [Clarinex] 5 mg PO DAILY 07/07/17 07/07/17 Dexamethasone/Tobramycin [Tobradex 2 drop OU TID 07/07/17 07/07/17 Opht Susp] Ergocalciferol (Vitamin D2) 50,000 unit PO QD7 07/07/17 07/07/17 [Vitamin D2] Esomeprazole Magnesium [Nexium 20 mg PO DAILY 07/07/17 07/07/17 24Hr] Ibuprofen [Advil Liqui-Gels] 200 mg PO PRN PRN 07/07/17 07/07/17 Loperamide [Imodium] 2 mg PO PRN PRN 07/07/17 07/07/17 Montelukast [Singulair] 10 mg PO HS 07/07/17 07/07/17 Mupirocin 2% Cream [Bactroban 30 gm EXT TID 07/07/17 07/07/17 Cream] Valsartan [Diovan] 160 mg PO DAILY 07/07/17 07/07/17 Review of Systems - Physician Review All systems were reviewed & negative as marked: Yes - Review of Systems Constitutional: Normal Eyes: Normal ENT: Normal Respiratory: Normal Cardiovascular: Normal Gastrointestinal: Normal Genitourinary Female: Normal Musculoskeletal: Normal Skin: Normal Neurological: Dizziness. absent: Headache, Focal Weakness, Speech Changes, Facial Droop Endocrine: Normal Hemo/Lymphatic: Normal Psychiatric: Normal Physical Exam Vital Signs Reviewed: Yes Vital Signs Temp Pulse Resp BP Pulse Ox 07/07/17 16:31 98.2 F 88 18 132/74 97 07/07/17 14:00 69 17 123/69 98 07/07/17 12:00 76 18 118/66 97 07/07/17 10:35 68 18 132/77 98 07/07/17 08:48 98.7 F 69 16 135/85 100 07/07/17 08:35 72 18 159/69 H 97 Temperature: Afebrile Blood Pressure: Normal Pulse: Regular Respiratory Rate: Normal Appearance: Positive for: Well-Appearing, Non-Toxic, Comfortable Pain Distress: None Mental Status: Positive for: Alert and Oriented X 3 - Systems Exam Head: Present: Atraumatic, Normocephalic Pupils: Present: PERRL Extroacular Muscles: Present: EOMI Conjunctiva: Present: Normal Mouth: Present: Moist Mucous Membranes Neck: Present: Normal Range of Motion Respiratory/Chest: Present: Clear to Auscultation, Good Air Exchange. No: Respiratory Distress, Accessory Muscle Use Cardiovascular: Present: Regular Rate and Rhythm, Normal S1, S2. No: Murmurs Abdomen: No: Tenderness, Distention, Peritoneal Signs Back: Present: Normal Inspection Upper Extremity: Present: Normal Inspection. No: Cyanosis, Edema Lower Extremity: Present: Normal Inspection. No: Edema Neurological: Present: GCS=15, CN II-XII Intact, Speech Normal, Motor Func Grossly Intact, Normal Sensory Function, Normal Cerebellar Funct, Norm Deep Tendon Reflexes, Gait Normal, Memory Normal, Normal 2Pt Descrimination, Other ( No focal neurological deficit) Skin: Present: Warm, Dry, Normal Color. No: Rashes Psychiatric: Present: Alert, Oriented x 3, Normal Insight, Normal Concentration Medical Decision Making ED Course and Treatment: 07/07/17 20:00 Pt in Emergency department for stated history. She was neurologically intact. On re evaluation after hydration and medication, pt continue to complain of dizziness. Leukopenia was noted, Lab was otherwise unremarkable. this could be secondary to her history of Lupus. EKG NSR with LVH @ 73bpm. NSTEMI. Secondary to pt persistent complain of dizziness, com morbidities and her age, she was placed on OBS for further evaluation. Case was DW Dr. Harris and she accepted pt for admission. - Lab Interpretations Lab Results: 07/07/17 09:10 07/07/17 09:10 Lab Results 07/07/17 10:14: Urine Color Yellow, Urine Appearance Clear, Urine pH 5.5, Ur Specific [place] 1.025, Urine Protein Negative, Urine Glucose (UA) Negative, Urine Ketones Negative, Urine Blood Negative, Urine Nitrate Negative, Urine Bilirubin Negative, Urine Urobilinogen 0.2, Ur Leukocyte Esterase Negative 07/07/17 09:10: Sodium 146, Potassium 4.6, Chloride 109 H, Carbon Dioxide 25, Anion Gap 17, BUN 17, Creatinine 0.7, Est GFR ( Amer) > 60, Est GFR (Non- Af Amer) > 60, Random Glucose 146 H, Calcium 9.0, Magnesium 1.9, Total Bilirubin 0.4, AST 28, ALT 31, Alkaline Phosphatase 69, Lactate Dehydrogenase 374, Total Creatine Kinase 90, Troponin I < 0.01, Total Protein 8.0, Albumin 4.0 , Globulin 4.0, Albumin/Globulin Ratio 1.0 L 07/07/17 09:10: PT 11.7, INR 1.02, APTT 32.3 07/07/17 09:10: WBC 3.8 L D, RBC 4.36, Hgb 12.3, Hct 37.7, MCV 86.5, MCH 28.2, MCHC 32.6, RDW 14.9 H, Plt Count 215, MPV 9.5, Gran % 60.9, Lymph % (Auto) 28.5 , [place] % (Auto) 8.8 H, Eos % (Auto) 1.3 L, Baso % (Auto) 0.5, Gran # 2.29, Lymph # (Auto) 1.1 L, [place] # (Auto) 0.3, Eos # (Auto) 0.1, Baso # (Auto) 0.02 - RAD Interpretation Radiology Orders: 07/07/17 09:26 HEAD W/O CONTRAST [CT] Stat 07/07/17 12:14 CAROTID & VERTEBRAL DUPLEX [US] Stat - Medication Orders Current Medication Orders: Aspirin (Aspirin Chewable) 81 mg PO DAILY [facility] Last Admin: 07/07/17 15:45 Dose: 81 mg Azathioprine (Imuran) 50 mg PO DAILY [facility] Famotidine (Pepcid) 40 mg PO DAILY [facility] Last Admin: 07/07/17 15:44 Dose: 40 mg Glimepiride (Amaryl) 2 mg PO BID [facility] Last Admin: 07/07/17 18:51 Dose: Insulin Human Lispro (Humalog Med) 0 units SC ACHS [facility] PRN Reason: Protocol Last Admin: 07/07/17 18:14 Dose: Not Given Non-Admin Reason: Blood Sugar Parameter MAR Blood Glucose Document 07/07/17 18:14 SML (Rec: 07/07/17 18:14 SML [id number]) Blood Glucose Finger Stick Blood Glucose (70-120) 109 Losartan Potassium (Cozaar) 50 mg PO DAILY [facility] Meclizine HCl (Antivert) 12.5 mg PO TID [facility] Last Admin: 07/07/17 18:57 Dose: 12.5 mg Metformin HCl (Glucophage) 1,000 mg PO BID [facility] Last Admin: 07/07/17 18:51 Dose: Discontinued Medications Sodium Chloride (Sodium Chloride 0.9%) 1,000 mls @ 999 mls/hr IV .Q1H1M STA Stop: 07/07/17 10:27 Last Admin: 07/07/17 09:46 Dose: 999 mls/hr eMAR Start Stop Document 07/07/17 09:46 [employer] SAL[employer] REPRESENTATIVE (Rec: 07/07/17 09:46 [id number]) Intravenous Solution Start Date 07/07/17 Start Time 09:46 End Date 07/07/17 End time 10:46 Total Infusion Time 60 Losartan Potassium (Cozaar) 50 mg PO STAT STA Stop: 07/07/17 18:49 Last Admin: 07/07/17 18:57 Dose: 50 mg MAR Pulse and Blood Pressure Document 07/07/17 18:57 SML (Rec: 07/07/17 18:58 [facility] [id number]) Pulse Pulse Rate (60-90) 61 Blood Pressure Blood Pressure (100/60-150/90) 143/96 Meclizine HCl (Antivert) 12.5 mg PO STAT STA Stop: 07/07/17 10:25 Last Admin: 07/07/17 10:39 Dose: 12.5 mg Meclizine HCl (Antivert) 12.5 mg PO STAT STA Stop: 07/07/17 11:45 Last Admin: 07/07/17 12:30 Dose: 12.5 mg Pneumococcal Polyvalent Vaccine (Pneumovax 23 Vaccine) 0.5 ml IM .ONCE ONE Stop: 07/07/17 19:25 Disposition/Present on Arrival - Present on Arrival Any Indicators Present on Arrival: No History of DVT/PE: No History of Uncontrolled Diabetes: No Urinary Catheter: No History of Decub. Ulcer: No History Surgical Site Infection Following: None - Disposition Have Diagnosis and Disposition been Completed?: Yes Diagnosis: Near syncope, Leukopenia Disposition: HOSPITALIZED Disposition Time: 12:15 Patient Plan: Admission Patient Problems: Current Active Problems Problem Status Onset Near syncope Acute Condition: FAIR
--- NOTE | 2017-07-07 12:36 | RAD ---
HISTORY: Admission COMPARISON: The the comparison chest 05/10/2016 FINDINGS: LUNGS: No active pulmonary disease. PLEURA: No significant pleural effusion identified, no pneumothorax apparent. CARDIOVASCULAR: Heart size within range of normal. Slight left ventricular configuration. OSSEOUS STRUCTURES: No significant abnormalities. VISUALIZED UPPER ABDOMEN: Normal. OTHER FINDINGS: None. IMPRESSION: No active disease.
--- NOTE | 2017-07-07 15:10 | HP ---
HISTORY OF PRESENT ILLNESS: The patient is 51 years old, has been feeling weak, dizzy, off balance gait, going on for last 2-3 days. The patient was recently in office for acute sinusitis. She was given Ceftin along with antihistamine. She states her sinus symptoms seems to be improving, but she is dizzy, unable to walk straight. Spinning sensation, feels nauseous and when she stands up. No history of fever. No chills. No history of hemoptysis. No hematemesis. Denies any headache. PAST MEDICAL HISTORY: Significant for, 1. Lupus, getting treated by room service associate with azathioprine. 2. Hypertension. 3. Hyperlipidemia. 4. Vdg-thzewsc-soozaawah diabetes. ALLERGIES: SHE IS NOT ALLERGIC TO ANY MEDICATIONS. MEDICATIONS AT HOME: She is on azathioprine, she is valsartan, metformin 1000 twice a day, glimepiride 2 mg twice a day, Lasix 20 mg daily, Pepcid 40 mg daily, aspirin 81 daily and she is on Augmentin. SOCIAL HISTORY: She has just got last year. Denies smoking or drinking. She works as a teacher. PHYSICAL EXAMINATION: GENERAL: She is awake and alert, complained of feeling dizzy and a little nauseous. VITAL SIGNS: She is afebrile, pulse 69, respirations 16, blood pressure 135/85. LUNGS: Bilateral fair airflow. No rhonchi or crackle. HEART: S1 and S2 audible. ABDOMEN: Soft. Nontender. No rebound. No guarding. NEUROLOGIC: She is awake, alert, oriented, communicative. Moves all extremities. LABORATORY EXAM: WBC is 3.8, hemoglobin 12.3, hematocrit 37, platelet 215. PT 11.7, INR 1.02. Chemistry: Sodium 146, potassium 4.6, chloride 109, CO2 of 25, BUN 17, creatinine 0.7, blood sugar of 146. LFTs are within normal limit. Urinalysis is unremarkable. ASSESSMENT: 1. Dizziness and vertigo, probably labyrinthitis. Rule out vascular causes. 2. Ubd-hivmfrn-nwqyvehxm diabetes. 3. Hypertension. 4. Hyperlipidemia. 5. History of lupus. PLAN: We will resume the patient's medications. Start her on meclizine. Neuro consult by Dr. Hernadez and carotid Doppler will be requested. Yamil Harris MD [facility] # [id number]
[2017-07-07] MEDS: Insulin Lispro (humaLOG) MEDIUM Coverage SC SCH ×2 (18:14→22:32)
[2017-07-07 18:37] VITALS: O2SAT 95
[2017-07-07 19:24] VITALS: RESP 16; TEMP 98.7; BMI 37.5
[2017-07-07] MEDS ORDERED: Pneumococcal 23-Valent Vaccine IM ONE (19:24)
--- NOTE | 2017-07-07 19:58 | US ---
PROCEDURE: Bilateral carotid artery duplex ultrasound HISTORY: Carotid stenosis PHYSICIAN(S): Cornell Ledesma MD. TECHNIQUE: Duplex sonography and color-flow Doppler were used to evaluate the carotid bifurcations and limited segments of the vertebral arteries bilaterally. The exam is somewhat limited by tortuous vessels. FINDINGS: There is mild smooth hypoechoic plaque noted at the carotid bifurcations bilaterally. The peak systolic velocity in the proximal right internal carotid artery is 60 cm/sec. This corresponds to a 20 to 39% proximal right ICA stenosis. Normal systolic velocities are noted in the proximal right external carotid artery. There is antegrade flow in the right vertebral artery. The peak systolic velocity in the proximal left internal carotid artery is 61 cm/sec. This corresponds to a 20 to 39% proximal left ICA stenosis. Normal systolic velocities are noted in the proximal left external carotid artery. There is antegrade flow in the left vertebral artery. IMPRESSION: 1. Bilateral 20-39% proximal ICA stenoses. 2. Antegrade flow in both vertebral arteries.
--- NOTE | 2017-07-07 21:51 | CARD ---
APPROVED REPORT EKG Measurement Heart [id number] CO [id number] <Conclusion> Normal sinus rhythm Moderate voltage criteria for LVH, may be normal variant Borderline ECG
[2017-07-08] MEDS: Insulin Lispro (humaLOG) MEDIUM Coverage SC SCH ×2 (08:14→12:06)
[2017-07-08 10:12] VITALS: BP 134/88; PULSE 70
--- NOTE | 2017-07-08 20:55 | CON ---
DATE: HISTORY OF PRESENT ILLNESS: This is a 51-year-old female with past medical history of lupus, hypertension, hyperlipidemia, and diabetes and the patient was recently treated for sinusitis and now complained of dizzy and was unable to walk, was feeling with spinning sensation and nausea, no vomiting. ALLERGIES: NO KNOWN DRUG ALLERGY. SOCIAL HISTORY: Does not smoke, does not drink. REVIEW OF SYSTEMS: A 10-point review of systems was negative. PHYSICAL EXAMINATION: HEENT: Normocephalic and atraumatic. NECK: Supple. NEUROLOGIC: Alert, awake, and oriented x3. No aphasia. Cranial nerves II through XII are tested. Pupils are reactive. 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 Tongue is midline. Motor examination, moves all the extremities equally, spontaneously. Deep tendon reflexes 1+. Both plantars are downgoing. Sensory appears intact. Cerebellar, gait deferred. IMPRESSION AND PLAN: Vertigo, dizziness, which is possibly benign positional and multiple medical problems like diabetes, hypertension, hyperlipidemia, lupus. The patient is doing better. CAT scan of the head was done, which was normal. Continue present management. We will follow up. Luciano Hernadez MD
--- NOTE | 2017-07-09 04:05 | DS ---
HISTORY OF PRESENT ILLNESS: The patient is a 51-year-old, seen and examined, sitting in chair, seems to be comfortable. She state her dizziness has gone. No nausea or vomiting. No diarrhea. PHYSICAL EXAMINATION: VITAL SIGNS: She is afebrile, pulse 70, respirations 18, blood pressure 134/88. LUNGS: Bilateral good airflow. No rhonchi or crackle. HEART: S1, S2 audible. ABDOMEN: Soft, obese, nontender. No rebound, no guarding. NEUROLOGICAL: Patient is awake, alert, oriented and communicative. LABORATORY DATA: Blood sugar is 134. Urinalysis is unremarkable. She had carotid Doppler done that is unremarkable. CT scan of the head is negative. ASSESSMENT: 1. Probably benign positional vertigo. Patient recently had episode of acute sinusitis, could be attributed by serous otitis media. 2. Lupus. 3. Hypertension. 4. Oqx-teskwbw-jxzlpifmi diabetes. PLAN: Patient is feeling lot better. We will discharge her on meclizine 12.5 t.i.d. p.r.n. She will follow up in office and she will resume all her medications as prior to admission. Yamil Harris MD
== END 2017-07-08 16:57 | disposition home or self-care (01) ==
LOC: ED 08:34 → ERH 12:15 → 3RNO 16:36
PROVIDERS: ADMIT Internal Medicine; ATTEND Internal Medicine
DX: R42 Dizziness and giddiness (principal); I10 Essential (primary) hypertension; E11.9 Type 2 diabetes mellitus without complications; M32.9 Systemic lupus erythematosus, unspecified; J44.9 Chronic obstructive pulmonary disease, unspecified; R26.2 Difficulty in walking, not elsewhere classified; E78.5 Hyperlipidemia, unspecified; Z79.84 Long term (current) use of oral hypoglycemic drugs
CPT/HCPCS: 70450; 71045; 80053; 81003; 82550; 82948; 83615; 83735; 84484; 85025; 85610; 85730; 93005; 93880; 96360; 97116; 97162; 99285; G0378; G8978; G8979; J7040; J7500